=== PATIENT | female | born 1985 | race Asian ===

== ENCOUNTER → 2016-12-21 | Outpatient (CLI) | payer MEDICARE, OTHER ==
--- NOTE | 2016-12-21 07:56 | MR ---
EXAMINATION TYPE: MR lumbar spine wo con DATE OF EXAM: 12/21/2016 7:15 AM COMPARISON: NONE HISTORY: Pain TECHNIQUE: Multiplanar, multisequence images of the lumbar spine were acquired. L1-L2: Normal disc appearance without desiccation. No herniation, protrusion or disc bulging. No ca nal stenosis is present. Foramina are patent bilaterally. L2-L3: Normal disc appearance without desiccation. No herniation, protrusion or disc bulging. No ca nal stenosis is present. Foramina are patent bilaterally. L3-L4: There is evidence of mild disc desiccation. Posterocentral disc protrusion with mild effacemen t of the ventral thecal sac. No evidence for central stenosis. Visualized foramina are patent bilater ally. L4-L5: Mild disc desiccation is present. Posterocentral disc bulge without herniation. Mild effacemen t ventral thecal sac. No evidence for lateral recess stenosis or central stenosis. Foramina are paten t. L5-S1: Moderate disc desiccation is present. Posterior central disc bulge with annular tear. No wendy herniation seen. Mild effacement ventral thecal sac. No evidence for central stenosis or foraminal e ncroachment. Lumbar segments are intact. No paraspinal masses are identified. Conus medullaris has a normal appe arance. IMPRESSION: 1. Degenerative disc disease as discussed. 2. Mild disc protrusion at L3-4. Disc bulging at L4-5 and L5-S1 as noted.
== END | disposition home or self-care (01) ==
LOC: RADMRIMAIN 06:29
PROVIDERS: ATTEND Nurse Practitioner Acute Care
DX: M51.36 Other intervertebral disc degeneration, lumbar region (principal); M51.27 Other intervertebral disc displacement, lumbosacral region; Z88.2 Allergy status to sulfonamides
CPT/HCPCS: 72148

== ENCOUNTER → 2019-10-08 | Outpatient (CLI) | payer OTHER ==
[2019-10-08 18:07] LABS: African American GFR (CKD) 135.9 (60.0-200.0); Albumin 5.2 g/dL (3.80-4.90); Albumin/Globulin Ratio 1.79 (1.60-3.17); Anion Gap 11.9 mmol/L (4.00-12.00); Carbon Dioxide 27.1 mmol/L (21.6-31.8); Globulin 2.9 g/dL (1.6-3.3); Non-African American GFR(CKD) 117.3 (60.0-200.0); Potassium 4.6 mmol/L (3.5-5.5); Total Bilirubin 0.7 mg/dL (0.3-1.2); Total Protein 8.1 g/dL (6.2-8.2)
[2019-10-08 18:52] LABS: Hepatitis A Antibody IgM Non-Reactive (Non-Reactive); Hepatitis B Core IgM Non-Reactive (Non-Reactive); Hepatitis B Surface Antigen Non-Reactive (Non-Reactive); Hepatitis C IgG Antibody Non-Reactive (Non-Reactive)
[2019-10-10 13:04] LABS: HIV 1 AB Non-Reactive (Non-Reactive); HIV 2 AB Non-Reactive (Non-Reactive); HIV AB P24 Non-Reactive (Non-Reactive); HIV P24 AG Non-Reactive (Non-Reactive)
== END | disposition home or self-care (01) ==
LOC: LABWHC1 11:44
PROVIDERS: ATTEND Family Medicine
DX: F19.20 Other psychoactive substance dependence, uncomplicated (principal); Z79.899 Other long term (current) drug therapy
CPT/HCPCS: 36415; 80053; 80074; 87390

== ENCOUNTER 2019-11-14 14:04 | Inpatient (IN) | payer MEDICARE, OTHER ==
[2019-11-14] MEDS ORDERED: SODIUM CHLORIDE 0.9% 2,000 ML IV STA (14:22)
[2019-11-14] MEDS ORDERED: KETOROLAC 30 MG/ML 1 ML VIAL IVP STA (14:22)
[2019-11-14 14:56] LABS: Basophils # (A) 0.2 k/uL (0-0.2); Basophils % (A) 2 %; Eosinophils # (A) 0.3 k/uL (0-0.7); Eosinophils % (A) 2 %; HGB 13.9 gm/dL (11.4-16.0); Lymphocytes # (A) 0.9 k/uL (1.0-4.8); Lymphocytes % (A) 7 %; MCH 33.4 pg (25.0-35.0); MCHC 32.2 g/dL (31.0-37.0); MCV 103.7 fL (80.0-100.0); Macrocytosis Slight; Mean Platelet Volume 6.9; Monocytes # (A) 0.7 k/uL (0-1.0); Monocytes % (A) 5 %; Neutrophils # (A) 10.2 k/uL (1.3-7.7); Neutrophils % (A) 82 %; Platelet Count 245 k/uL (150-450); RBC 4.15 m/uL (3.80-5.40); RDW 12.9 % (11.5-15.5); WBC 12.5 k/uL (3.8-10.6)
[2019-11-14 15:00] LABS: Appearance,Urine Cloudy (Clear); Bacteria,Urine Occasional /hpf; Bilirubin,Urine Negative (Negative); Blood,Urine Trace (Negative); Color,Urine Yellow; Glucose,Urine (UA) Negative (Negative); Ketones,Urine Negative (Negative); Leukocyte Esterase,Urine Trace (Negative); Mucus,Urine Rare /hpf; Nitrite,Urine Negative (Negative); PH, Urine 6.5 (5.0-8.0); Protein,Urine Negative (Negative); RBC,Urine 3 /hpf (0-5); Specific Gravity,Urine 1.012 (1.001-1.035); Squamous Epithelial Cell,Urine 1 /hpf (0-4); Urobilinogen,Urine <2.0 mg/dL (<2.0); WBC,Urine 3 /hpf (0-5)
[2019-11-14 15:06] LABS: ALT 18 U/L (4-34); AST 24 U/L (14-36); African American GFR (CKD) >90 (>60 ml/min/1.73 sqM); Albumin 4.2 g/dL (3.5-5.0); Alkaline Phosphatase 104 U/L (38-126); Amylase 60 U/L (30-110); Anion Gap 9 mmol/L; Blood Urea Nitrogen 8 mg/dL (7-17); Calcium 8.9 mg/dL (8.4-10.2); Carbon Dioxide 23 mmol/L (22-30); Chloride 106 mmol/L (98-107); Glucose 81 mg/dL (74-99); Non-African American GFR(CKD) >90 (>60 ml/min/1.73 sqM); Potassium 3.8 mmol/L (3.5-5.1); Sodium 138 mmol/L (137-145); Total Bilirubin 0.6 mg/dL (0.2-1.3); Total Protein 7.6 g/dL (6.3-8.2)
--- NOTE | 2019-11-14 15:15 | ED ---
Abdominal Pain HPI - General Chief Complaint: Abdominal Pain Stated Complaint: poss kidney infection Time Seen by Provider: 11/14/19 14:19 Source: patient, RN notes reviewed Mode of arrival: ambulatory Limitations: no limitations - History of Present Illness Initial Comments: This a 34-year-old female presents emergency department tingling right flank p ain. Patient states that she was sent from urgent care for probable pyelonephritis. Patient states she does have seen urinary frequency and dysuria. She states she has severe right flank pain. Patient does have a history of kidney stones but states that she's never passed one. She denies any current nausea vomiting she does admit to fevers at home. Patient denies any chance . Patient does have a history of drug abuse is currently taking Suboxone. Patient denies any chest pain, shortness breath. - Related Data Previous Rx's Medication Instructions Recorded Doxepin [SINEquan] 100 mg PO HS #120 cap 07/08/16 LORazepam [Ativan] 0.5 mg PO BID #45 tab 07/08/16 LORazepam [Ativan] 0.5 mg PO TID tab 07/08/16 Sertraline [Zoloft] 100 mg PO DAILY #30 tab 07/08/16 Allergies Allergy/AdvReac Type Severity Reaction Status Date / Time Sulfa (Sulfonamide Allergy Unknown Verified 07/02/16 19:22 Antibiotics) Review of Systems ROS Statement: Those systems with pertinent positive or pertinent negative responses have been documented in the HPI. ROS Other: All systems not noted in ROS Statement are negative. Past Medical History Past Medical History: Hypertension Additional Past Medical History / Comment(s): vascular necrosis-prostetic hips, kidney stones History of Any Multi-Drug Resistant Organisms: None Reported Past Surgical History: Orthopedic Surgery Additional Past Surgical History / Comment(s): valerie HIP REPLACEMENT Past Anesthesia/Blood Transfusion Reactions: No Reported Reaction Past Psychological History: Anxiety, Depression Smoking Status: Current every day smoker Past Alcohol Use History: Occasional Past Drug Use History: Cocaine, Methamphetamine General Exam Limitations: no limitations General appearance: alert, in no apparent distress Head exam: Present: atraumatic, normocephalic, normal inspection Eye exam: Present: normal appearance, PERRL, EOMI. Absent: scleral icterus, conjunctival injection, periorbital swelling ENT exam: Present: normal exam, normal oropharynx, mucous membranes moist Neck exam: Present: normal inspection, full ROM. Absent: tenderness, men ingismus, lymphadenopathy Respiratory exam: Present: normal lung sounds bilaterally. Absent: respiratory distress, wheezes, rales, rhonchi, stridor Cardiovascular Exam: Present: regular rate, normal rhythm, normal heart sounds. Absent: systolic murmur, diastolic murmur, rubs, gallop, clicks GI/Abdominal exam: Present: soft, normal bowel sounds. Absent: distended, tenderness, guarding, rebound, rigid Back exam: Present: CVA tenderness (R) (Moderate). Absent: CVA tenderness (L) Neurological exam: Present: alert, oriented X3, CN II-XII intact Skin exam: Present: warm, dry, intact, normal color. Absent: rash Course Vital Signs 11/14/19 11/14/19 14:16 15:38 Temperature 99.1 F Pulse Rate 103 H 86 Respiratory 20 18 Rate Blood Pressure 108/80 117/76 O2 Sat by Pulse 99 100 Oximetry Medical Decision Making - Medical Decision Making Patient's lab work does reveal mild leukocytosis, mild shift. CT shows multifocal pyelonephritis on the right. Patient will be admitted for IV antibiotics and further evaluation. - Lab Data Result diagrams: 11/14/19 14:35 11/14/19 14:35 Lab Results 11/14/19 11/14/19 11/14/19 Range/Units 14:35 14:35 14:35 WBC 12.5 H (3.8-10.6) k/uL RBC 4.15 (3.80-5.40) m/uL Hgb 13.9 (11.4-16.0) gm/dL Hct 43.0 (34.0-46.0) % MCV 103.7 H (80.0-100.0) fL MCH 33.4 (25.0-35.0) pg MCHC 32.2 (31.0-37.0) g/dL RDW 12.9 (11.5-15.5) % Plt Count 245 (150-450) k/uL Neutrophils % 82 % Lymphocytes % 7 % Monocytes % 5 % Eosinophils % 2 % Basophils % 2 % Neutrophils # 10.2 H (1.3-7.7) k/uL Lymphocytes # 0.9 L (1.0-4.8) k/uL Monocytes # 0.7 (0-1.0) k/uL Eosinophils # 0.3 (0-0.7) k/uL Basophils # 0.2 (0-0.2) k/uL Macrocytosis Slight Sodium 138 (137-145) mmol/L Potassium 3.8 (3.5-5.1) mmol/L Chloride 106 (98-107) mmol/L Carbon Dioxide 23 (22-30) mmol/L Anion Gap 9 mmol/L BUN 8 (7-17) mg/dL Creatinine 0.35 L (0.52-1.04) mg/dL Est GFR (CKD-EPI)AfAm >90 (>60 ml/min/1.73 sqM) Est GFR (CKD-EPI)NonAf >90 (>60 ml/min/1.73 sqM) Glucose 81 (74-99) mg/dL Plasma Lactic Acid Ney (0.7-2.0) mmol/L Calcium 8.9 (8.4-10.2) mg/dL Total Bilirubin 0.6 (0.2-1.3) mg/dL AST 24 (14-36) U/L ALT 18 (4-34) U/L Alkaline Phosphatase 104 (38-126) U/L Total Protein 7.6 (6.3-8.2) g/dL Albumin 4.2 (3.5-5.0) g/dL Amylase 60 (30-110) U/L Lipase 40 (23-300) U/L Urine Color Urine Appearance (Clear) Urine pH (5.0-8.0) Ur Specific [place] (1.001-1.035) Urine Protein (Negative) Urine Glucose (UA) (Negative) Urine Ketones (Negative) Urine Blood (Negative) Urine Nitrite (Negative) Urine Bilirubin (Negative) Urine Urobilinogen (<2.0) mg/dL Ur Leukocyte Esterase (Negative) Urine RBC (0-5) /hpf Urine WBC (0-5) /hpf Ur Squamous Epith Cells (0-4) /hpf Urine Bacteria (None) /hpf Urine Mucus (None) /hpf Urine HCG, Qual Not Detected (Not Detectd) 11/14/19 11/14/19 Range/Units 14:35 14:35 WBC (3.8-10.6) k/uL RBC (3.80-5.40) m/uL Hgb (11.4-16.0) gm/dL Hct (34.0-46.0) % MCV (80.0-100.0) fL MCH (25.0-35.0) pg MCHC (31.0-37.0) g/dL RDW (11.5-15.5) % Plt Count (150-450) k/uL Neutrophils % % Lymphocytes % % Monocytes % % Eosinophils % % Basophils % % Neutrophils # (1.3-7.7) k/uL Lymphocytes # (1.0-4.8) k/uL Monocytes # (0-1.0) k/uL Eosinophils # (0-0.7) k/uL Basophils # (0-0.2) k/uL Macrocytosis Sodium (137-145) mmol/L Potassium (3.5-5.1) mmol/L Chloride (98-107) mmol/L Carbon Dioxide (22-30) mmol/L Anion Gap mmol/L BUN (7-17) mg/dL Creatinine (0.52-1.04) mg/dL Est GFR (CKD-EPI)AfAm (>60 ml/min/1.73 sqM) Est GFR (CKD-EPI)NonAf (>60 ml/min/1.73 sqM) Glucose (74-99) mg/dL Plasma Lactic Acid Ney 1.9 (0.7-2.0) mmol/L Calcium (8.4-10.2) mg/dL Total Bilirubin (0.2-1.3) mg/dL AST (14-36) U/L ALT (4-34) U/L Alkaline Phosphatase (38-126) U/L Total Protein (6.3-8.2) g/dL Albumin (3.5-5.0) g/dL Amylase (30-110) U/L Lipase (23-300) U/L Urine Color Yellow Urine Appearance Cloudy H (Clear) Urine pH 6.5 (5.0-8.0) Ur Specific [place] 1.012 (1.001-1.035) Urine Protein Negative (Negative) Urine Glucose (UA) Negative (Negative) Urine Ketones Negative (Negative) Urine Blood Trace H (Negative) Urine Nitrite Negative (Negative) Urine Bilirubin Negative (Negative) Urine Urobilinogen <2.0 (<2.0) mg/dL Ur Leukocyte Esterase Trace H (Negative) Urine RBC 3 (0-5) /hpf Urine WBC 3 (0-5) /hpf Ur Squamous Epith Cells 1 (0-4) /hpf Urine Bacteria Occasional H (None) /hpf Urine Mucus Rare H (None) /hpf Urine HCG, Qual (Not Detectd) Disposition Clinical Impression: Pyelonephritis Narrative: Multifocal pyelonephritis Disposition: ADMITTED IP TO THIS HOSP Condition: Fair Referrals: Buck Aj MD [Primary Care Provider] - 1-2 days
--- NOTE | 2019-11-14 15:53 | CT ---
EXAMINATION TYPE: CT abdomen pelvis w con DATE OF EXAM: 11/14/2019 HISTORY: Abdominal pain with fever CT DLP: 674.2mGycm Automated Exposure Control for Dose Reduction was Utilized. CONTRAST: CT scan of the abdomen and pelvis is performed without oral but with IV Contrast, patient injected wi th 100 mL of Isovue 300. COMPARISON: None. FINDINGS: LUNG BASES: Respiratory motion artifact. Patchy dependent atelectasis left lung base LIVER/GB: Stone filled contracted gallbladder. No surrounding fat stranding clearly seen. PANCREAS: No significant abnormality is seen. SPLEEN: No significant abnormality is seen. ADRENALS: No significant abnormality is seen. KIDNEYS: Kidneys show cortical medullary uptake and excretion bilaterally without hydronephrosis. Sub centimeter low dense lesion posteriorly upper to midpole left kidney image 31 series 301 is too small to further characterize presumed benign. There is a heterogeneous area of nonenhancement anteriorly upper to mid pole of the right kidney with additional smaller area of striation and posteriorly midpo le level image 40. Asymmetric mild right-sided perinephric fluid. Asymmetric slight enlargement right kidney versus left kidney BOWEL: Evaluation bowel suboptimal secondary to lack of enteric contrast. No suspicious small large b owel dilatation. Patient has little intra-abdominal fat making evaluation suboptimal. UTERUS/ADNEXA: Slightly anteverted uterus. Both ovaries seen axial image 76 within normal limits in s ize for patient's age LYMPH NODES: No greater than 1cm abdominal or pelvic lymph nodes are appreciated. OSSEOUS STRUCTURES: Metallic artifact from bilateral hip arthroplasty causes streak artifact limiting evaluation of pelvic structures. Scattered pelvic phleboliths are partially imaged. Mild to moderate disc space narrowing L5-S1 level. OTHER: No significant additional abnormality is seen. IMPRESSION: CT findings suggest diagnosis of multifocal right-sided pyelonephritis correlate clinical ly and with urine lab values.
[2019-11-14] MEDS ORDERED: VANCOMYCIN IV PER PHARMACY 1 EACH MISC MISCELLANE PRN ×2 (16:04→17:15)
[2019-11-14] MEDS ORDERED: NALOXONE 0.4 MG/ML 1 ML VIAL IV PRN (16:05)
[2019-11-14] MEDS ORDERED: ACETAMINOPHEN TAB 325 MG TAB PO PRN (16:05)
[2019-11-14] MEDS ORDERED: VANCOMYCIN 1,000 MG in SODIUM CHLORIDE 0.9% 250 ML IVPB STA (16:10)
[2019-11-14] MEDS ORDERED: IBUPROFEN 800 MG TAB PO PRN (17:08)
[2019-11-14] MEDS ORDERED: ALBUTEROL NEBULIZED 2.5 MG/3 ML INHALATION PRN (17:08)
[2019-11-14] MEDS: SODIUM CHLORIDE 0.9% 1,000 ML IV SCH ×2 (18:58→23:38)
--- NOTE | 2019-11-14 19:41 | HP ---
HISTORY AND PHYSICAL CHIEF COMPLAINTS: Abdominal pain and right flank pain. 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 Renteria as well as Dr. Aj in the outpatient setting, is on Suboxone currently. The patient is complaining of abdominal pain which is felt in the right loin area, and the patient also is complaining of urinary frequency and dysuria. The patient came to [facility] and was admitted for evaluation and treatment. CT scan of the abdomen showed possible multifocal pyelonephritis on the right side. There is no history of any fever, rigor or chills. No history of headache, loss of consciousness, seizures. Per chart, there is history of some substance abuse. PAST MEDICAL HISTORY: 1. History of hypertension. 2. History of avascular necrosis of both hips. 3. Kidney stones. 4. History of DJD. 5. History of anxiety, depression. HOME MEDICATIONS: 1. Zanaflex 4 mg p.o. b.i.d. 2. Ibuprofen 800 mg q.6 p.r.n. 3. Suboxone 1 film b.i.d. 4. Ventolin 1-2 puffs q.6 p.r.n. ALLERGIES: SULFA. FAMILY HISTORY: No history of heart disease or strokes in the family. SOCIAL HISTORY: Possible polysubstance abuse and smoking. Alcohol as well as cocaine, methamphetamine. REVIEW OF SYSTEMS: ENT: No diminished hearing. No diminished vision. CARDIOVASCULAR SYSTEM: No angina, palpitations. RESPIRATORY SYSTEM: No cough, hemoptysis. GI: As mentioned earlier. : As mentioned earlier. NERVOUS SYSTEM: No numbness, weakness. ALLERGY/IMMUNOLOGY: No asthma, hayfever. MUSCULOSKELETAL: As mentioned earlier. HEMATOLOGY/ONCOLOGY: No history of anemia. ENDOCRINE: No history of diabetes, hypothyroidism. CONSTITUTIONAL: As mentioned earlier. DERMATOLOGY: Negative. RHEUMATOLOGY: Negative. PSYCHIATRY: As mentioned earlier. PHYSICAL EXAMINATION: Patient is alert and oriented x3. Pulse is 83. Blood pressure 112/75, respiration 18, temperature 98.6, pulse ox 100% on room air. HEENT: Conjunctivae normal. Oral mucosa moist. NECK: No jugular venous distention. No carotid bruit. No lymph node enlargement. CARDIOVASCULAR SYSTEM: S1, S2 muffled. No S3. No S4. RESPIRATORY SYSTEM: Breath sounds diminished at the bases. No rhonchi. No crackles. ABDOMEN: Soft. Mild diffuse tenderness in the right loin area and right mid part of the abdomen also present. No mass palpable. LEGS: No edema. No swelling. NERVOUS SYSTEM: Higher functions as mentioned earlier. Moves all 4 limbs. No focal motor or sensory deficit. LYMPHATICS: No lymph node palpable in neck, axillae or groin. SKIN: No ulcer, rash, bleeding. JOINTS: No active deforming arthropathy. LABS: WBC 12.5, hemoglobin 13.9. Sodium 138, potassium 3.9, creatinine 0.35. UA noted. ASSESSMENT: 1. Acute right multifocal pyelonephritis with possible sepsis, present on admission. 2. Increased white count. 3. Increased mean corpuscular volume. 4. History of hypertension. 5. History of avascular necrosis of both hips, status post prostheses. 6. History of nephrolithiasis. 7. History of degenerative joint disease. 8. History of anxiety, depression. 9. History of polysubstance abuse, possibly including cocaine, methamphetamine, nicotine dependence, ethanol, per chart. 10.FULL CODE. RECOMMENDATIONS AND DISCUSSION: In this 34-year-old woman who presented with multiple complex medical issues, we will monitor the patient closely, continue the current medications, continue symptomatic treatment. Will initiate Rocephin and vancomycin. Infectious disease evaluation. CT scan noted. Also recommend a workup for infective endocarditis such as blood cultures and 2D echo with Doppler. Prognosis is guarded because of multiple complex medical issues. Further recommendations to follow. A copy of this dictation is being forwarded to Dr. Renteria and Dr. Aj. MMJUAN ML / JOCELINEN: [id number] / MTDMarquise
[2019-11-14] MEDS: KETOROLAC 30 MG/ML 1 ML VIAL IVP PRN (21:43)
[2019-11-14] MEDS: HEPARIN SODIUM,PORCINE 5,000 UNIT/ML 1 ML VIAL SQ SCH (21:43)
[2019-11-14] MEDS: TEMAZEPAM 15 MG CAP PO PRN (23:12)
[2019-11-14] MEDS: NON FORMULARY DRUG (Buprenorphine Hcl/Naloxone Hcl [Suboxone 8 Mg-2 Mg Sl Film] 1 FILM) SUBLINGUAL SCH (23:13)
[2019-11-14] MEDS: VANCOMYCIN 1,000 MG in SODIUM CHLORIDE 0.9% 250 ML IVPB SCH (23:36)
[2019-11-14] MEDS: tiZANidine 4 MG TAB PO SCH (23:36)
[2019-11-15 03:37] LABS: Amphetamine Screen,Urine Detected (NotDetected); Barbiturate Screen,Urine Not Detected (NotDetected); Benzodiazepines Screen,Urine Detected (NotDetected); Cocaine Screen,Urine Not Detected (NotDetected); Methadone Screen, Urine Not Detected (NotDetected); Opiate Screen,Urine Not Detected (NotDetected); Oxycodone Screen, Urine Not Detected (NotDetected); Phencyclidine Screen,Urine Not Detected (NotDetected); Tricyclic Antidepressant,Urine Not Detected (NotDetected); Urn Cannabinoid Scrn Detected (NotDetected)
[2019-11-15] MEDS: KETOROLAC 30 MG/ML 1 ML VIAL IVP PRN ×2 (07:32→19:14)
[2019-11-15] MEDS: tiZANidine 4 MG TAB PO SCH ×2 (07:33→20:36)
[2019-11-15] MEDS: HEPARIN SODIUM,PORCINE 5,000 UNIT/ML 1 ML VIAL SQ SCH ×2 (07:33→20:36)
[2019-11-15] MEDS: PANTOPRAZOLE 40 MG TABLET PO SCH (07:33)
[2019-11-15 08:33] LABS: Basophils % (A) 0 %; Eosinophils # (A) 0.2 k/uL (0-0.7); Eosinophils % (A) 3 %; HCT 37.6 % (34.0-46.0); HGB 12.2 gm/dL (11.4-16.0); Lymphocytes # (A) 0.8 k/uL (1.0-4.8); Lymphocytes % (A) 10 %; MCH 33.8 pg (25.0-35.0); MCHC 32.5 g/dL (31.0-37.0); MCV 104.2 fL (80.0-100.0); Macrocytosis Slight; Mean Platelet Volume 7.5; Monocytes # (A) 0.5 k/uL (0-1.0); Monocytes % (A) 6 %; Neutrophils # (A) 6.5 k/uL (1.3-7.7); Neutrophils % (A) 80 %; Platelet Count 231 k/uL (150-450); RBC 3.61 m/uL (3.80-5.40); RDW 12.9 % (11.5-15.5); WBC 8.2 k/uL (3.8-10.6)
[2019-11-15 08:42] LABS: African American GFR (CKD) >90 (>60 ml/min/1.73 sqM); Anion Gap 5 mmol/L; Blood Urea Nitrogen 9 mg/dL (7-17); Calcium 8.4 mg/dL (8.4-10.2); Carbon Dioxide 23 mmol/L (22-30); Chloride 109 mmol/L (98-107); Glucose 95 mg/dL (74-99); Non-African American GFR(CKD) >90 (>60 ml/min/1.73 sqM); Potassium 4.2 mmol/L (3.5-5.1); Sodium 137 mmol/L (137-145)
[2019-11-15] MEDS: NON FORMULARY DRUG (Buprenorphine Hcl/Naloxone Hcl [Suboxone 8 Mg-2 Mg Sl Film] 1 FILM) SUBLINGUAL SCH ×2 (09:07→21:54)
[2019-11-15] MEDS: VANCOMYCIN 1,000 MG in SODIUM CHLORIDE 0.9% 250 ML IVPB SCH ×3 (09:08→23:51)
[2019-11-15 12:09] LABS: Erythrocyte Sedimentation Rate 58 mm/hr (0-20)
--- NOTE | 2019-11-15 13:00 | ECHOF ---
Referral Reason:infective endocarditis?? MEASUREMENTS -------- HEIGHT: 162.6 cm WEIGHT: 59.4 kg BP: 118/70 RVIDd: 2.3 cm (< 3.3) IVSd: 1.1 cm (0.6 - 1.1) LVIDd: 4.6 cm (3.9 - 5.3) LVPWd: 0.9 cm (0.6 - 1.1) IVSs: 1.6 cm LVIDs: 2.5 cm LVPWs: 1.6 cm LAESV Index (A-L): 25.74 ml/m Ao Diam: 2.6 cm (2.0 - 3.7) AV Cusp: 1.8 cm (1.5 - 2.6) MV EXCURSION: 12.541 mm (> 18.000) MV EF SLOPE: 94 mm/s (70 - 150) EPSS: 0.8 cm MV E Jae: 0.79 m/s MV DecT: 210 ms MV A Jae: 0.66 m/s MV E/A Ratio: 1.19 RAP: 5.00 mmHg RVSP: 20.75 mmHg FINDINGS -------- Sinus rhythm. This was a technically good study. The left ventricular size is normal. There is borderline concentric left ventricular hypertrophy. Overall left ventricular systolic function is normal with, an EF between 60 - 65 %. The right ventricle is normal in size. Normal LA size by volume 22+/-6 ml/m2. The right atrium is normal in size. Interatrial and interventricular septum intact. The aortic valve is trileaflet and appears structurally normal. There is trace mitral regurgitation. Mild tricuspid regurgitation present. Right ventricular systolic pressure is normal at < 35 mmHg. Trace/mild (physiologic) pulmonic regurgitation. The aortic root size is normal. Normal inferior vena cava with normal inspiratory collapse consistent with estimated right atrial pre ssure of 5 mmHg. The inferior vena cava is mildly dilated. There is no pericardial effusion. CONCLUSIONS -------- 1. Sinus rhythm. 2. This was a technically good study. 3. The left ventricular size is normal. 4. There is borderline concentric left ventricular hypertrophy. 5. Overall left ventricular systolic function is normal with, an EF between 60 - 65 %. 6. The right ventricle is normal in size. 7. Normal LA size by volume 22+/-6 ml/m2. 8. The right atrium is normal in size. 9. Interatrial and interventricular septum intact. 10. The aortic valve is trileaflet and appears structurally normal. 11. There is trace mitral regurgitation. 12. Mild tricuspid regurgitation present. 13. Right ventricular systolic pressure is normal at < 35 mmHg. 14. Trace/mild (physiologic) pulmonic regurgitation. 15. The aortic root size is normal. 16. Normal inferior vena cava with normal inspiratory collapse consistent with estimated right atrial pressure of 5 mmHg. 17. The inferior vena cava is mildly dilated. 18. There is no pericardial effusion. HOSPICE CONSULTANT: VANI Maria
--- NOTE | 2019-11-15 14:01 | P.PN ---
Subjective Progress Note Date: 11/15/19 Principal diagnosis: This is a 34-year-old female who was recently admitted for possible multifocal pyelonephritis of the right side and is being closely monitored. Patient underwent echo today showing overall left ventricular systolic function is normal with an EF between 60 and 65% with some mild tricuspid regurgitation and trace of mitral regurgitation present with no pericardial effusion noted. Patient states that she is urinating and continues to have some frequency with urination. Patient is maintained on IV vancomycin and will continue at this time. Patient states that she continues to have generalized pain and right- sided pain is well but is not being managed. Patient is requesting something stronger than toradol. Patient is currently on Suboxone and is being followed by Dr. Renteria and Dr. Aj in the outpatient setting. Review of Systems: Cardiovascular: No reports of chest pain or palpitations Respiratory: Reports some shortness of breath at times, reports cough GI: No reports of nausea, vomiting, or diarrhea : Reports mild dysuria, no reports of retention Musculoskeletal: Reports generalized pain of the hips bilaterally and reports mild right abdominal pain Active Medications Acetaminophen (Tylenol Tab) 650 mg PO Q6HR PRN PRN Reason: Mild Pain or Fever > 100.5 Albuterol Sulfate (Ventolin Nebulized) 2.5 mg INHALATION RT-Q6H PRN PRN Reason: Shortness Of Breath Heparin Sodium (Porcine) (Heparin) 5,000 unit SQ Q12HR [facility] Last Admin: 11/15/19 07:33 Dose: 5,000 unit Documented by: Hydromorphone HCl (Dilaudid) 0.5 mg IVP Q6HR PRN PRN Reason: Severe Pain Sodium Chloride (Saline 0.9%) 1,000 mls @ 100 mls/hr IV .Q10H [facility] Last Admin: 11/14/19 23:38 Dose: 100 mls/hr Documented by: Vancomycin HCl 1,000 mg/ (Sodium Chloride) 250 mls @ 125 mls/hr IVPB Q8H [facility] Last Admin: 11/15/19 09:08 Dose: 125 mls/hr Documented by: Ceftriaxone Sodium 1 gm/ (Sodium Chloride) 50 mls @ 100 mls/hr IVPB Q24HR [facility] Last Admin: 11/15/19 07:33 Dose: 100 mls/hr Documented by: Ibuprofen (Motrin) 800 mg PO Q6H PRN PRN Reason: Pain Last Admin: 11/14/19 19:54 Dose: 800 mg Documented by: Ketorolac Tromethamine (Toradol) 30 mg IVP Q6HR PRN PRN Reason: Moderate Pain Stop: 11/19/19 16:06 Last Admin: 11/15/19 07:32 Dose: 30 mg Documented by: Miscellaneous Information (Vancomycin Trough Due) 0 each MISCELLANE DIRECTED ONE Stop: 11/15/19 23:01 Naloxone HCl (Narcan) 0.2 mg IV Q2M PRN PRN Reason: Opioid Reversal Non-Formulary Medication (Buprenorphine Hcl/Naloxone Hcl [Suboxone 8 Mg-2 Mg Sl Film]) 1 film SUBLINGUAL BID [facility] Last Admin: 11/15/19 09:07 Dose: Not Given Documented by: Pantoprazole Sodium (Protonix) 40 mg PO AC-BRKFST [facility] Last Admin: 11/15/19 07:33 Dose: 40 mg Documented by: Temazepam (Restoril) 15 mg PO HS PRN PRN Reason: Insomnia Last Admin: 11/14/19 23:12 Dose: 15 mg Documented by: Tizanidine HCl (Zanaflex) 4 mg PO BID [facility] Last Admin: 11/15/19 07:33 Dose: 4 mg Documented by: Objective - Vital Signs Vital signs: Vital Signs Temp 98.7 F 11/15/19 05:13 Pulse 69 11/15/19 05:13 Resp 16 11/15/19 05:13 BP 118/79 11/15/19 05:13 Pulse Ox 99 11/15/19 05:13 Intake & Output 11/14/19 11/15/19 11/15/19 18:59 06:59 18:59 Weight 59.647 kg Other: # Voids 1 # Bowel Movements 0 - Exam Gen: This is a 34-year-old female lying in bed alert and oriented 3, well- nourished. Temp is 98.7F, pulse is 69, respirations are 16, blood pressure is 118/79, oxygen saturation is 99% on room air. HEENT: Head is atraumatic, normocephalic. Pupils equal, round. Sclerae is anicteric. NECK: Supple. No JVD. No lymphadenopathy. No thyromegaly. LUNGS: Diminished breath sounds at the bases with no wheezing or rhonchi noted. No intercostal retractions. HEART: S1, S2 are muffled with no murmur noted. ABDOMEN: Soft. Bowel sounds are present. No masses. Mild right-sided mid abdominal tenderness noted on palpation EXTREMITIES: No pedal edema. No calf tenderness. NEUROLOGICAL: Patient is awake, alert and oriented x3. Cranial nerves 2 through 12 are grossly intact. - Labs CBC & Chem 7: 11/15/19 07:32 11/15/19 07:32 Labs: Abnormal Lab Results - Last 24 Hours (Table) 11/14/19 11/14/19 11/14/19 Range/Units 14:35 14:35 14:35 WBC 12.5 H (3.8-10.6) k/uL RBC (3.80-5.40) m/uL MCV 103.7 H (80.0-100.0) fL Neutrophils # 10.2 H (1.3-7.7) k/uL Lymphocytes # 0.9 L (1.0-4.8) k/uL ESR (0-20) mm/hr Chloride (98-107) mmol/L Creatinine 0.35 L (0.52-1.04) mg/dL C-Reactive Protein (<10.0) mg/L Urine Appearance Cloudy H (Clear) Urine Blood Trace H (Negative) Ur Leukocyte Esterase Trace H (Negative) Urine Bacteria Occasional H (None) /hpf Urine Mucus Rare H (None) /hpf Ur Amphetamines Screen (NotDetected) U Benzodiazepines Scrn (NotDetected) U Marijuana (THC) Screen (NotDetected) 11/14/19 11/15/19 11/15/19 Range/Units 14:45 03:00 07:32 WBC (3.8-10.6) k/uL RBC 3.61 L (3.80-5.40) m/uL MCV 104.2 H (80.0-100.0) fL Neutrophils # (1.3-7.7) k/uL Lymphocytes # 0.8 L (1.0-4.8) k/uL ESR 58 H (0-20) mm/hr Chloride (98-107) mmol/L Creatinine (0.52-1.04) mg/dL C-Reactive Protein 198.8 H (<10.0) mg/L Urine Appearance (Clear) Urine Blood (Negative) Ur Leukocyte Esterase (Negative) Urine Bacteria (None) /hpf Urine Mucus (None) /hpf Ur Amphetamines Screen Detected H (NotDetected) U Benzodiazepines Scrn Detected H (NotDetected) U Marijuana (THC) Screen Detected H (NotDetected) 11/15/19 Range/Units 07:32 WBC (3.8-10.6) k/uL RBC (3.80-5.40) m/uL MCV (80.0-100.0) fL Neutrophils # (1.3-7.7) k/uL Lymphocytes # (1.0-4.8) k/uL ESR (0-20) mm/hr Chloride 109 H (98-107) mmol/L Creatinine 0.36 L (0.52-1.04) mg/dL C-Reactive Protein (<10.0) mg/L Urine Appearance (Clear) Urine Blood (Negative) Ur Leukocyte Esterase (Negative) Urine Bacteria (None) /hpf Urine Mucus (None) /hpf Ur Amphetamines Screen (NotDetected) U Benzodiazepines Scrn (NotDetected) U Marijuana (THC) Screen (NotDetected) Assessment and Plan Assessment: Acute right multifocal pyelonephritis with possible sepsis, present on admission Increased white blood count Increased mean corpuscle volume History of hypertension History of avascular necrosis of both hips, status post prosthesis History of nephrolithiasis history of degenerative joint disease history of anxiety, depression History of polysubstance abuse, possibly including cocaine, methamphetamine, nicotine dependence, ethanol, per chart Full code Recommendations and discussion: Recommend to continue current medications, management, and symptomatic treatment. Pain medications have been adjusted and will continue to monitor closely. IV antibiotics in the form of ceftriaxone and Vanco will continue at this time. Infectious disease is following. Echo was done as mentioned previously. Due to multiple complex medical issues prognosis is guarded. Further recommendations to follow.
[2019-11-15] MEDS: SODIUM CHLORIDE 0.9% 1,000 ML IV SCH ×2 (14:25→22:30)
[2019-11-15] MEDS: HYDROmorphone 0.5 MG/0.5 ML SYRINGE IVP PRN ×2 (14:26→20:47)
[2019-11-15] MEDS ORDERED: VANCOMYCIN TROUGH DUE 1 EACH MISC MISCELLANE ONE (23:00)
[2019-11-15] MEDS: TEMAZEPAM 15 MG CAP PO PRN (23:51)
--- NOTE | 2019-11-16 00:11 | P.CONS ---
History of Present Illness - Reason for Consult Consult date: 11/15/19 pyelonephritis Requesting physician: Jennie Carnes - Chief Complaint right flank pain x days - History of Present Illness Patient is a 34-year-old female presenting to the ER at [facility] yesterday with chief complaints of pain to the right flank area patient pain has been going on for few days before presented to the hospital patient describes the pain to the right flank area more of a sharp nature intensity about 6-7 out of 10 and no radiation patient has been complaining of some urinary frequency and dysuria before her flank pain started also have some fever with chills with the symptom the patient was evaluated by the ER physician on arrival to the ER patient did have a CT of abdominal pelvis completed which did show some multifocal right-sided pyelonephritis correlate clinically patient did have a mildly positive UA white count was 12.5 urine drug screen was positive for benzos and marijuana and amphetamines patient did have blood cultures drawn which are currently pending she was started on Rocephin 1 g daily in addition to vancomycin infectious disease was consulted for further recommendation regarding antibiotic therapy. Review of Systems Positive point has been mentioned in HPI rest of the systems are negative Past Medical History Past Medical History: Hypertension Additional Past Medical History / Comment(s): vascular necrosis-prosthetic hips, kidney stones History of Any Multi-Drug Resistant Organisms: None Reported Past Surgical History: Orthopedic Surgery Additional Past Surgical History / Comment(s): valerie HIP REPLACEMENT Past Anesthesia/Blood Transfusion Reactions: No Reported Reaction Past Psychological History: Anxiety, Depression Smoking Status: Current every day smoker Past Alcohol Use History: Occasional Past Drug Use History: Cocaine, Methamphetamine - Past Family History Father History Unknown: Yes Additional Family Medical History / Comment(s): Pt is adopted Medications and Allergies Home Medications Medication Instructions Recorded Confirmed Type Albuterol Inhaler [Ventolin Hfa 2 puff INHALATION RT-Q4H PRN 11/14/19 11/14/19 History Inhaler] Buprenorphine HCl/Naloxone HCl 1 film SL BID 11/14/19 11/14/19 History [Suboxone 8 mg-2 mg Sl Film] Ibuprofen [Motrin Ib] 800 mg PO Q6H PRN 11/14/19 11/14/19 History tiZANidine [Zanaflex] 4 mg PO BID 11/14/19 11/14/19 History Allergies Allergy/AdvReac Type Severity Reaction Status Date / Time Sulfa (Sulfonamide Allergy Rash/Hives/ Verified 11/14/19 17:05 Antibiotics) Swelling Physical Exam Vitals: Vital Signs Temp Pulse Resp BP Pulse Ox 11/15/19 20:19 82 16 11/15/19 14:17 98.6 F 82 16 128/87 100 11/15/19 05:13 98.7 F 69 16 118/79 99 11/15/19 00:00 83 16 Intake and Output 11/15/19 11/15/19 11/15/19 06:59 14:59 22:59 Intake Total 900 Balance 900 Intake: Oral 900 Other: # Voids 1 2 2 # Bowel Movements 0 0 GENERAL DESCRIPTION: Middle-aged female lying in bed, no distress. No tachypnea or accessory muscle of respiration use. HEENT: Shows Pallor , no scleral icterus. Oral mucous membrane is dry. NECK: Trachea central, no thyromegaly. LUNGS: Unlabored breathing. Clear to auscultation anteriorly. No wheeze or crackle. HEART: S1, S2, regular rate and rhythm. ABDOMEN: Soft, right flank tenderness tenderness , guarding or rigidity EXTREMITIES: No edema of feet. SKIN: No rash, no masses palpable. NEUROLOGICAL: The patient is awake, alert, oriented x3, mood and affect normal. Results CBC & Chem 7: 11/15/19 07:32 11/15/19 07:32 Labs: Abnormal Lab Results - Last 24 Hours (Table) 11/15/19 11/15/19 11/15/19 Range/Units 03:00 07:32 07:32 RBC 3.61 L (3.80-5.40) m/uL MCV 104.2 H (80.0-100.0) fL Lymphocytes # 0.8 L (1.0-4.8) k/uL ESR 58 H (0-20) mm/hr Chloride 109 H (98-107) mmol/L Creatinine 0.36 L (0.52-1.04) mg/dL Ur Amphetamines Screen Detected H (NotDetected) U Benzodiazepines Scrn Detected H (NotDetected) U Marijuana (THC) Screen Detected H (NotDetected) Microbiology - Last 24 Hours (Table) 11/14/19 14:35 Blood Culture - Preliminary Blood No Growth after 24 hours Assessment and Plan Assessment: -patient with right-sided pyelonephritis in this patient presented hospital with right flank pain and also some dysuria and frequency likely from enteric gram- negative pathogen likely exacerbation of her gram-positive pathogen responsible for this UTI (1) Pyelonephritis Current Visit: Yes Status: Acute Code(s): N12 - TUBULO-INTERSTITIAL NEPHRITIS, NOT SPCF ACUTE OR CHRONIC SNOMED Code(s): 37673045 Plan: 1-repeat a UA and a culture 2-we will increase Rocephin to 2 g daily and discontinue the vancomycin 3-IV fluid We will follow on clinical condition and cultures to further adjust medication if needed Thank you for this consultation we will follow the patient along with you Time with Patient: Greater than 30
[2019-11-16] MEDS: HYDROmorphone 0.5 MG/0.5 ML SYRINGE IVP PRN ×2 (03:31→09:16)
[2019-11-16 06:58] LABS: Basophils # (A) 0.2 k/uL (0-0.2); Basophils % (A) 3 %; Eosinophils # (A) 0.2 k/uL (0-0.7); Eosinophils % (A) 2 %; HCT 37.1 % (34.0-46.0); HGB 11.6 gm/dL (11.4-16.0); Lymphocytes # (A) 1.2 k/uL (1.0-4.8); Lymphocytes % (A) 20 %; MCH 32.6 pg (25.0-35.0); MCHC 31.3 g/dL (31.0-37.0); MCV 104.1 fL (80.0-100.0); Macrocytosis Slight; Mean Platelet Volume 7.8; Monocytes # (A) 0.6 k/uL (0-1.0); Monocytes % (A) 10 %; Neutrophils # (A) 3.9 k/uL (1.3-7.7); Neutrophils % (A) 63 %; Platelet Count 278 k/uL (150-450); RBC 3.56 m/uL (3.80-5.40); RDW 12.8 % (11.5-15.5); WBC 6.2 k/uL (3.8-10.6)
[2019-11-16 07:09] LABS: African American GFR (CKD) >90 (>60 ml/min/1.73 sqM); Anion Gap 6 mmol/L; Blood Urea Nitrogen 15 mg/dL (7-17); Calcium 7.9 mg/dL (8.4-10.2); Carbon Dioxide 22 mmol/L (22-30); Chloride 110 mmol/L (98-107); Glucose 132 mg/dL (74-99); Non-African American GFR(CKD) >90 (>60 ml/min/1.73 sqM); Potassium 3.6 mmol/L (3.5-5.1); Sodium 138 mmol/L (137-145)
[2019-11-16] MEDS: PANTOPRAZOLE 40 MG TABLET PO SCH (07:17)
[2019-11-16] MEDS: VANCOMYCIN 1,000 MG in SODIUM CHLORIDE 0.9% 250 ML IVPB SCH ×3 (07:18→19:53)
[2019-11-16] MEDS: NON FORMULARY DRUG (Buprenorphine Hcl/Naloxone Hcl [Suboxone 8 Mg-2 Mg Sl Film] 1 FILM) SUBLINGUAL SCH ×2 (09:15→19:56)
[2019-11-16] MEDS: HEPARIN SODIUM,PORCINE 5,000 UNIT/ML 1 ML VIAL SQ SCH ×2 (09:16→21:00)
[2019-11-16] MEDS: tiZANidine 4 MG TAB PO SCH ×2 (09:16→21:00)
[2019-11-16] MEDS: SODIUM CHLORIDE 0.9% 1,000 ML IV SCH ×2 (09:22→18:30)
[2019-11-16] MEDS: KETOROLAC 30 MG/ML 1 ML VIAL IVP PRN ×2 (12:12→20:55)
[2019-11-16 13:39] LABS: Appearance,Urine Clear (Clear); Bilirubin,Urine Negative (Negative); Blood,Urine Negative (Negative); Color,Urine Light Yellow; Glucose,Urine (UA) Negative (Negative); Ketones,Urine Negative (Negative); Leukocyte Esterase,Urine Negative (Negative); Nitrite,Urine Negative (Negative); Protein,Urine Negative (Negative); Urobilinogen,Urine <2.0 mg/dL (<2.0)
--- NOTE | 2019-11-16 17:54 | PN ---
PROGRESS NOTE DATE OF SERVICE: 11/16/2019 REASON FOR FOLLOWUP: Right-sided pyelonephritis. INTERVAL HISTORY: The patient is currently afebrile. The patient is breathing comfortably. The patient's pain to the right flank area has improved. Denies having any chest pain, shortness of breath or cough. No nausea, no vomiting, no abdominal pain, no diarrhea. PHYSICAL EXAMINATION: Blood pressure is 132/91 with a pulse of 68, temperature 98.6. She is 100% on room air. General description is a middle-aged female up in the chair in no distress. RESPIRATORY SYSTEM: Unlabored breathing. Clear to auscultation anteriorly. HEART: S1, S2. Regular rate and rhythm. ABDOMEN: Soft. No tenderness. LABS: Hemoglobin 11.3, white count 6.2, BUN of 15, creatinine 0.49. Blood culture has been negative. DIAGNOSTIC IMPRESSION AND PLAN: Patient with right-sided pyelonephritis. Patient's white count has normalized. Blood culture has been negative so far. Repeat UA has been ordered. Rocephin 2 grams daily while waiting for the repeat culture to finalize. Continue with supportive care. MMODL / IJN: [id number] /
--- NOTE | 2019-11-16 18:15 | PN ---
PROGRESS NOTE DATE OF SERVICE: 11/16/2019 This 34-year-old woman who was admitted with multifocal pyelonephritis and significant right renal angle pain is being closely monitored. Cultures are negative. Patient is on broad-spectrum IV antibiotics. Infectious Disease is following the patient. No chest pain. No palpitations. No fever. PHYSICAL EXAMINATION: Alert and oriented x3. Pulse 68, blood pressure 138/91, respirations 16, temperature 98.6, pulse ox 100% on room air. HEENT: Conjunctivae normal. NECK: No jugular venous distention. CARDIOVASCULAR SYSTEM: S1, S2 muffled. RESPIRATORY SYSTEM: Breath sounds diminished at the bases. No rhonchi. No crackles. ABDOMEN: Soft. Minimal diffuse tenderness in the right renal angle present. No guarding. No rigidity. NERVOUS SYSTEM: No focal deficits. LABS: WBC 6.2, hemoglobin 11.6. ASSESSMENT: 1. Acute multifocal right pyelonephritis with possible sepsis, present on admission. 2. Increased white count. 3. Increased mean corpuscular volume. 4. Hypertension. 5. History of vascular necrosis of both hips, status post prostheses. 6. History of nephrolithiasis. 7. History of degenerative joint disease. 8. History of anxiety, depression. 9. History of polysubstance abuse, including cocaine, methamphetamine, nicotine dependence, ethanol per chart. 10.FULL CODE. RECOMMENDATIONS AND DISCUSSION: I recommend to continue current medications, continue with the monitoring, symptomatic treatment. Continue with the broad-spectrum IV antibiotics. Prognosis guarded because of multiple complex medical issues. Further recommendations to follow. MMODL / IJN: [id number] /
[2019-11-16] MEDS: TEMAZEPAM 15 MG CAP PO PRN (21:05)
[2019-11-17] MEDS: VANCOMYCIN 1,000 MG in SODIUM CHLORIDE 0.9% 250 ML IVPB SCH ×3 (00:14→13:34)
[2019-11-17] MEDS: HYDROmorphone 0.5 MG/0.5 ML SYRINGE IVP PRN (00:34)
[2019-11-17] MEDS: SODIUM CHLORIDE 0.9% 1,000 ML IV SCH ×2 (04:35→14:22)
[2019-11-17] MEDS ORDERED: VANCOMYCIN TROUGH DUE 1 EACH MISC MISCELLANE ONE (06:00)
[2019-11-17 06:20] LABS: Basophils % (A) 0 %; Eosinophils # (A) 0.1 k/uL (0-0.7); Eosinophils % (A) 2 %; HGB 11.7 gm/dL (11.4-16.0); Lymphocytes # (A) 1.8 k/uL (1.0-4.8); Lymphocytes % (A) 27 %; MCH 32.8 pg (25.0-35.0); MCHC 31.6 g/dL (31.0-37.0); MCV 103.7 fL (80.0-100.0); Macrocytosis Slight; Monocytes # (A) 0.5 k/uL (0-1.0); Monocytes % (A) 8 %; Neutrophils # (A) 3.8 k/uL (1.3-7.7); Neutrophils % (A) 59 %; Platelet Count 274 k/uL (150-450); RBC 3.57 m/uL (3.80-5.40); RDW 12.6 % (11.5-15.5); WBC 6.5 k/uL (3.8-10.6)
[2019-11-17 06:38] LABS: African American GFR (CKD) >90 (>60 ml/min/1.73 sqM); Anion Gap 4 mmol/L; Blood Urea Nitrogen 14 mg/dL (7-17); Carbon Dioxide 25 mmol/L (22-30); Chloride 109 mmol/L (98-107); Glucose 98 mg/dL (74-99); Non-African American GFR(CKD) >90 (>60 ml/min/1.73 sqM); Potassium 3.6 mmol/L (3.5-5.1); Sodium 138 mmol/L (137-145)
[2019-11-17 06:59] VITALS: PULSE 67
[2019-11-17] MEDS: HEPARIN SODIUM,PORCINE 5,000 UNIT/ML 1 ML VIAL SQ SCH (08:03)
[2019-11-17] MEDS: KETOROLAC 30 MG/ML 1 ML VIAL IVP PRN (08:03)
[2019-11-17] MEDS: PANTOPRAZOLE 40 MG TABLET PO SCH (08:03)
[2019-11-17] MEDS: tiZANidine 4 MG TAB PO SCH (08:38)
[2019-11-17] MEDS: NON FORMULARY DRUG (Buprenorphine Hcl/Naloxone Hcl [Suboxone 8 Mg-2 Mg Sl Film] 1 FILM) SUBLINGUAL SCH (08:39)
[2019-11-17 14:12] VITALS: BP 131/90; RESP 16; TEMP 98.7
--- NOTE | 2019-11-17 18:44 | PN ---
PROGRESS NOTE DATE OF SERVICE: 11/17/2019. REASON FOR FOLLOWUP VISIT: Right-sided pyelonephritis. INTERVAL HISTORY: The patient is currently afebrile. Patient is breathing comfortably. The patient is feeling back to her baseline. The right flank pain has resolved. No nausea, no vomiting. No chest pain, shortness of breath or cough. No abdominal pain. No diarrhea. PHYSICAL EXAMINATION: Blood pressure 120/76 with a pulse of 57, temperature 98.4. She is 100% on room air. General description is a middle-aged female up in the chair in no distress. Respiratory system: Unlabored breathing. Clear to auscultation anteriorly. Heart S1, S2. Regular rate and rhythm. ABDOMEN: Soft, no tenderness. EXTREMITIES: No edema of the feet. LABS: Hemoglobin 11.2, white count 6.3, creatinine 0.40. Repeat UA is negative. Blood and urine culture so far negative. DIAGNOSTIC IMPRESSION AND PLAN: Patient admitted to the hospital with right flank pain, some low-grade fever in this patient who did have a CT suspicious for multifocal right-sided pyelonephritis. However, her urine was not significantly positive with a culture remains to be negative. Currently the patient has shown overall clinical improvement on Rocephin. We will switch her over to oral Ceftin 500 mg twice a day for 10 days with the patient to follow up with Urology in outpatient setting and repeating a CT scan to make sure the abnormality seen on the right kidney is resolved. If not, she may need further workup. She responded yes to understanding instructions. As she is insisting on going home, we will let her go home. MMODL / IJN: [id number] /
--- NOTE | 2019-11-18 11:08 | DS ---
DISCHARGE SUMMARY DATE OF SERVICE: 11/17/2019 FINAL DIAGNOSES: 1. Acute multifocal right pyelonephritis with possible sepsis, present on admission. 2. Increased WBC. 3. Increased MCV. 4. Hypertension. 5. History of avascular necrosis of both hips, status post prostheses. 6. Nephrolithiasis. 7. History of degenerative joint disease. 8. History of anxiety, depression. 9. History of polysubstance abuse including alcohol, cocaine, methamphetamine, nicotine dependence per chart. 10.FULL CODE. DISCHARGE DISPOSITION: The patient will be discharged in a stable condition with guarded prognosis. Dr. Frederick cleared the patient for discharge. Patient is keen on going home. HISTORY OF PRESENT ILLNESS: This is a 34-year-old woman with a past medical history of multiple medical problems, admitted with acute multifocal right pyelonephritis and pain. The pre sepsis suspected in the beginning. Cultures are negative. Patient treated with empiric antibiotic. Dr. Frederick for saw the patient. CAT scan of the abdomen confirmed the multiple multifocal nature of the pyelonephritis. Recommend close followup in the outpatient setting at this time. Patient; however, is extremely keen on going home. On exam, alert and oriented x3. Vitals are normal. CARDIOVASCULAR SYSTEMS: S1, S2, muffled. RESPIRATION: Breath sounds diminished at the bases. ABDOMEN: Soft, nontender. NERVOUS SYSTEM: No focal deficits. DISCHARGE ADVICE: Diet is cardiac diet. Activity limited until followup. Follow up with Dr. Renteria in 2 in 2-3 days. Medications are as follow Dr. Frederick has recommended. Follow up CAT scan down the line in 1-2 months to ensure stability. MEDICATION: 1. Ibuprofen 800 mg q.6h p.r.n. 2. suboxone1 sublingual by b.i.d. 3. Albuterol 2 puffs q.i.d. p.r.n. 4. Zanaflex 4 mg p.o. b.i.d. 5. Ceftin 500 mg p.o. b.i.d. for 10 days. MMODL / IJN: [id number] / MTDD
== END 2019-11-17 15:59 | disposition home or self-care (01) | DRG 872 ==
LOC: EC 14:04 → 6NMEDSUR 16:04
PROVIDERS: ADMIT Hospitalist; ATTEND Hospitalist
DX: A41.9 Sepsis, unspecified organism (principal); N10 Acute pyelonephritis; F17.200 Nicotine dependence, unspecified, uncomplicated; I10 Essential (primary) hypertension; F32.9 Major depressive disorder, single episode, unspecified; F41.9 Anxiety disorder, unspecified; I08.1 Rheumatic disorders of both mitral and tricuspid valves; Z87.442 Personal history of urinary calculi; Z96.643 Presence of artificial hip joint, bilateral; Z79.899 Other long term (current) drug therapy; Z88.2 Allergy status to sulfonamides
CPT/HCPCS: 36415; 74177; 80048; 80053; 80202; 80306; 81001; 81003; 81025; 82150; 83605; 83690; 85025; 85652; 86140; 87040; 87086; 93306; 96361; 96365; 96367; 96375; 99285

== ENCOUNTER 2020-12-23 10:10 | Emergency (ER) | payer OTHER, MEDICARE ==
[2020-12-23 10:18] VITALS: RESP 18; TEMP 98
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
[2020-12-23] MEDS ORDERED: ACETAMINOPHEN TAB 325 MG TAB PO STA (11:41)
--- NOTE | 2020-12-23 12:21 | XR ---
AP pelvis HISTORY: Pain, trauma Frontal view of the pelvis submitted, correlation to CT scan 11/14/2019 Bilateral hip arthroplasties are present. Metallic densities adjacent to the proximal right femur are again noted. Cerclage wires, side plate seen on prior CT are not seen on today's exam along the righ t hip prosthesis, correlate for interval surgery. Multiple calcifications are present within the pelv is likely representing phleboliths. Joint spaces and alignment are maintained. IMPRESSION: No acute fracture or dislocation.
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
[2020-12-23 13:06] VITALS: BP 135/93; PULSE 64
[2020-12-23 13:13] LABS: Appearance,Urine Cloudy (Clear); Bacteria,Urine Rare /hpf; Bilirubin,Urine Negative (Negative); Blood,Urine Large (Negative); Color,Urine Yellow; Glucose,Urine (UA) Negative (Negative); Hyaline Casts,Urine 1 /lpf (0-2); Ketones,Urine 2+ (Negative); Leukocyte Esterase,Urine Negative (Negative); Mucus,Urine Few /hpf; Nitrite,Urine Negative (Negative); Protein,Urine Trace (Negative); RBC,Urine 6 /hpf (0-5); Specific Gravity,Urine 1.016 (1.001-1.035); Squamous Epithelial Cell,Urine 4 /hpf (0-4); Urobilinogen,Urine <2.0 mg/dL (<2.0); WBC,Urine 4 /hpf (0-5)
[2020-12-23 13:17] LABS: Amphetamine Screen,Urine Detected (NotDetected); Barbiturate Screen,Urine Not Detected (NotDetected); Benzodiazepines Screen,Urine Not Detected (NotDetected); Cocaine Screen,Urine Not Detected (NotDetected); Methadone Screen, Urine Not Detected (NotDetected); Opiate Screen,Urine Not Detected (NotDetected); Oxycodone Screen, Urine Not Detected (NotDetected); Phencyclidine Screen,Urine Not Detected (NotDetected); Tricyclic Antidepressant,Urine Not Detected (NotDetected); Urn Cannabinoid Scrn Detected (NotDetected)
== END 2020-12-23 13:06 | disposition home or self-care (01) ==
LOC: EC 10:10
DX: M54.2 Cervicalgia (principal); M25.551 Pain in right hip; R07.89 Other chest pain; M25.552 Pain in left hip; Z96.643 Presence of artificial hip joint, bilateral; Z88.2 Allergy status to sulfonamides; V43.52XA Car driver injured in collision with other type car in traffic accident, initial encounter; Y92.410 Unspecified street and highway as the place of occurrence of the external cause
CPT/HCPCS: 70450; 71250; 72125; 72170; 80306; 81001; 81025; 82075; 99284

== ENCOUNTER 2021-04-16 14:00 | Inpatient (IN) | payer MEDICARE, MEDICAID ==
--- NOTE | 2021-04-16 15:05 | ED ---
Altered Mental Status HPI - General Source: patient, RN notes reviewed Mode of arrival: ambulatory Limitations: no limitations <Harry Molina - Last Filed: 04/16/21 19:12> <Andry Galvan - Last Filed: 04/16/21 19:16> - General Chief Complaint: Altered Mental Status Stated Complaint: Possible Hypothermic, Possible Overdose Time Seen by Provider: 04/16/21 14:10 - History of Present Illness Initial Comments: 35-year-old female presents emergency from with police for psychiatric evaluation. Patient does admit to methamphetamine use, alcohol use. Patient states that she's been using more daily as her depression has been worsening. She states she used earlier this morning states that she was with her ex-boyfriend and states that she was along the water that her ex-boyfriend was in the water so she jumped in. Patient's is unclear she is suicidal or not denies any homicidal ideation denies any physical complaints of the usual states she has chronic hip pain. Patient denies any head injury no loss conscious. (Harry Molina) - Related Data Home Medications Medication Instructions Recorded Confirmed tiZANidine [Zanaflex] 4 mg PO BID PRN 11/14/19 04/16/21 Ibuprofen [Motrin] 800 mg PO TID PRN 04/16/21 04/16/21 Mirtazapine [Remeron] 30 mg PO HS 04/16/21 04/16/21 Naltrexone HCl [Revia] 50 mg PO HS 04/16/21 04/16/21 hydrOXYzine pamoate [Vistaril] 25 mg PO QID PRN 04/16/21 04/16/21 Allergies Allergy/AdvReac Type Severity Reaction Status Date / Time Sulfa (Sulfonamide Allergy Rash/Hives/ Verified 04/16/21 16:25 Antibiotics) Swelling Review of Systems ROS Other: All systems not noted in ROS Statement are negative. <Harry Molina - Last Filed: 04/16/21 19:12> ROS Other: All systems not noted in ROS Statement are negative. <Andry Galvan - Last Filed: 04/16/21 19:16> ROS Statement: Those systems with pertinent positive or pertinent negative responses have been documented in the HPI. Past Medical History Past Medical History: Hypertension Additional Past Medical History / Comment(s): vascular necrosis-prosthetic hips, kidney stones History of Any Multi-Drug Resistant Organisms: None Reported Past Surgical History: Orthopedic Surgery Additional Past Surgical History / Comment(s): valerie HIP REPLACEMENT Past Anesthesia/Blood Transfusion Reactions: No Reported Reaction Past Psychological History: Anxiety, Depression Past Alcohol Use History: Occasional Past Drug Use History: Cocaine, Methamphetamine - Past Family History Father History Unknown: Yes Additional Family Medical History / Comment(s): Pt is adopted <Harry Molina - Last Filed: 04/16/21 19:12> General Exam Limitations: no limitations General appearance: alert, in no apparent distress Head exam: Present: atraumatic, normocephalic, normal inspection Eye exam: Present: normal appearance, PERRL, EOMI. Absent: scleral icterus, conjunctival injection, periorbital swelling ENT exam: Present: normal exam, mucous membranes moist Neck exam: Present: normal inspection. Absent: tenderness, meningismus, lymphadenopathy Respiratory exam: Present: normal lung sounds bilaterally. Absent: respiratory distress, wheezes, rales, rhonchi, stridor Cardiovascular Exam: Present: regular rate, normal rhythm, normal heart sounds. Absent: systolic murmur, diastolic murmur, rubs, gallop, clicks GI/Abdominal exam: Present: soft, normal bowel sounds. Absent: distended, tenderness, guarding, rebound, rigid Neurological exam: Present: alert, oriented X3 Psychiatric exam: Present: depressed, flat affect <Harry Molina - Last Filed: 04/16/21 19:12> Course Vital Signs 04/16/21 14:02 Temperature 97.5 F L Pulse Rate 54 L Respiratory 20 Rate Blood Pressure 136/93 O2 Sat by Pulse 100 Oximetry Medical Decision Making <Harry Molina - Last Filed: 04/16/21 19:12> <Andry Galvan - Last Filed: 04/16/21 19:16> - Medical Decision Making Patient admitted by psychiatric services after evaluation (Harry Molina) Patient seen by mental health services with plans for psychiatric admission. Patient reevaluated and reexamined by myself, Dr. Galvan. I agree with PA findings. This includes diagnostic interpretation and treatment plan. Patient amiss to having depression. Patient omits to her methamphetamine use and increasing her psychosis. Patient also admits to alcohol use. Patient earlier cannot state whether or not she was suicidal. Patient has been hallucinating and jumping in the river. Patient also reportedly has been hearing voices. Positive clinical certificate completed. (Andry Galvan) - Lab Data Lab Results 04/16/21 Range/Units 14:20 Urine Opiates Screen Not Detected (NotDetected) Ur Oxycodone Screen Not Detected (NotDetected) Urine Methadone Screen Not Detected (NotDetected) Ur Propoxyphene Screen Not Detected (NotDetected) Ur Barbiturates Screen Not Detected (NotDetected) U Tricyclic Antidepress Not Detected (NotDetected) Ur Phencyclidine Scrn Not Detected (NotDetected) Ur Amphetamines Screen Detected H (NotDetected) U Methamphetamines Scrn Detected H (NotDetected) U Benzodiazepines Scrn Not Detected (NotDetected) Urine Cocaine Screen Not Detected (NotDetected) U Marijuana (THC) Screen Detected H (NotDetected) Disposition <Harry Molina - Last Filed: 04/16/21 19:12> <Andry Galvan - Last Filed: 04/16/21 19:16> Clinical Impression: Drug abuse, Depression Disposition: TRANSFER TO PSYCH HOSP/UNIT Referrals: None,Stated [Primary Care Provider] - 1-2 days
[2021-04-16 16:02] LABS: Amphetamine Screen,Urine Detected (NotDetected); Barbiturate Screen,Urine Not Detected (NotDetected); Benzodiazepines Screen,Urine Not Detected (NotDetected); Cocaine Screen,Urine Not Detected (NotDetected); Methadone Screen, Urine Not Detected (NotDetected); Opiate Screen,Urine Not Detected (NotDetected); Oxycodone Screen, Urine Not Detected (NotDetected); Phencyclidine Screen,Urine Not Detected (NotDetected); Tricyclic Antidepressant,Urine Not Detected (NotDetected); Urn Cannabinoid Scrn Detected (NotDetected)
[2021-04-16] MEDS ORDERED: MAG HYDROX/AL HYDROX/SIMETH 30 ML CUP PO PRN (20:15)
[2021-04-16] MEDS ORDERED: MAGNESIUM HYDROXIDE 2,400 MG/10 ML CUP PO PRN (20:15)
[2021-04-16] MEDS ORDERED: LORazepam 2 MG/ML INJ IM PRN (20:18)
[2021-04-16] MEDS ORDERED: HALOPERIDOL LACTATE 5 MG/ML 1 ML VIAL IM PRN (20:18)
[2021-04-16] MEDS ORDERED: haloperidoL 5 MG TAB PO PRN (20:18)
[2021-04-16 21:03] VITALS: RESP 18
[2021-04-16] MEDS: LORazepam 1 MG TAB PO PRN (21:19)
[2021-04-16] MEDS: ACETAMINOPHEN TAB 325 MG TAB PO PRN (21:19)
[2021-04-16] MEDS: QUEtiapine 100 MG TAB PO SCH (21:19)
--- NOTE | 2021-04-17 03:13 | P.PN ---
Progress Note - Text Progress Note Date: 04/16/21 patient inappropriate for medical evaluation at this time
[2021-04-17] MEDS: NICOTINE 14MG/24HR PATCH TRANSDERM SCH (09:45)
[2021-04-17 10:50] LABS: Basophils # (A) 0.1 k/uL (0-0.2); Basophils % (A) 1 %; Eosinophils # (A) 0.3 k/uL (0-0.7); Eosinophils % (A) 5 %; HCT 44.6 % (34.0-46.0); HGB 14.3 gm/dL (11.4-16.0); Lymphocytes # (A) 2.1 k/uL (1.0-4.8); Lymphocytes % (A) 40 %; MCH 32.5 pg (25.0-35.0); MCHC 32.1 g/dL (31.0-37.0); MCV 101.1 fL (80.0-100.0); Macrocytosis Slight; Mean Platelet Volume 6.3; Monocytes # (A) 0.4 k/uL (0-1.0); Monocytes % (A) 7 %; Neutrophils # (A) 2.4 k/uL (1.3-7.7); Neutrophils % (A) 45 %; Platelet Count 333 k/uL (150-450); RBC 4.41 m/uL (3.80-5.40); RDW 13.1 % (11.5-15.5); WBC 5.3 k/uL (3.8-10.6)
[2021-04-17 11:00] LABS: ALT 25 U/L (4-34); AST 45 U/L (14-36); African American GFR (CKD) >90 (>60 ml/min/1.73 sqM); Albumin 4.3 g/dL (3.5-5.0); Alkaline Phosphatase 61 U/L (38-126); Anion Gap 7 mmol/L; Blood Urea Nitrogen 17 mg/dL (7-17); Calcium 9.4 mg/dL (8.4-10.2); Carbon Dioxide 25 mmol/L (22-30); Chloride 106 mmol/L (98-107); Glucose 81 mg/dL (74-99); Non-African American GFR(CKD) >90 (>60 ml/min/1.73 sqM); Sodium 138 mmol/L (137-145); Total Bilirubin 1.7 mg/dL (0.2-1.3); Total Protein 6.9 g/dL (6.3-8.2)
--- NOTE | 2021-04-17 12:21 | P.HP ---
Psychiatric H&P - . H&P Date: 04/17/21 History & Physical: IDENTIFYING DATA: Fior is a 35-year-old [place] female admitted to the psychiatric unit involuntarily. HISTORY OF PRESENT ILLNESS: According to the petition completed by the EPS nurse, she was found [place] swimming towards a delusional object. A bystander called the police who brought hospital. At the time of her presentation to ED she was "hearing and seeing people that were not there." I reviewed the medical record and attempted to interview the patient. She was markedly sedated and provided little information. Her primary complaint was that she was "tired" and appeared markedly fatigued throughout the interview. She stated that the police brought to the hospital because she thought she saw her ex-boyfriend floating in the river. At the time of our interview she denied experiencing auditory, visual or olfactory hallucinations. She acknowledged that she was mistaken about her ex-boyfriend. When I asked her what may have contributed to her confusion she replied that she has been drinking and drugging. She has been insufflating, smoking and injecting methamphetamine. In addition she stated that she has been abusing Xanax, marijuana and alcohol. Her UDS was positive for amphetamine, methamphetamine and marijuana. Her breath alcohol level was 0. PAST PSYCHIATRIC HISTORY: This is her third admission to our psychiatric unit. 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 She was not forthcoming about her psychiatric history. PAST MEDICAL HISTORY: She has a history of acute multifocal right pyelonephritis, avascular necrosis of both hips, nephrolithiasis, degenerative joint disease ALLERGIES: Sulfa SUBSTANCE USE HISTORY: She has history of alcohol and substance use problem. She is a history of alcohol use disorder she can empty 1/5 a day since age of 17 with brief periods of sobriety. Her longest period of sobriety was 1 year when she was in [facility]. She has a history of withdrawal seizures from alcohol and Xanax. She smokes marijuana daily. She has been using methamphetamine for approximately the last year. She has been in substance abuse treatment program 6 times. FAMILY PSYCHIATRIC/SUBSTANCE USE HISTORY: Unknown because she was adopted LEGAL HISTORY: She had a felony conviction following her third DUI convictions and September 2016. She is not on probation, parole or has pending charges. SOCIAL HISTORY: She was adopted at the age of 1 or 1. She has no children of her own. She is . She is currently unemployed and receiving disability secondary to avascular necrosis of hips. She graduate high school. She has 3 brothers. She denied a history of abuse. She is currently homeless. MENTAL STATUS EXAM: She presented as his sedated and minimally cooperative 35-year-old [place] female. Date intermittent eye contact and had difficulty concentrating and attending to the interview. She had tattoos on her arms but no prominent physical abnormalities. She had a flat facial expression. She is alert and oriented to person and place. She had marked psychomotor retardation in a slow but steady gait. Her speech was not spontaneous, dysarthric and with decrease in rate and rhythm. His affect was flat. She denied current suicidal ideation, wishes or homicidal ideation. She did not express ideas reference, paranoid ideation or delusions. Her thinking was concrete. Associations were goal-directed. She denied hallucinations did not appear to be responding to internal stimuli. Global impression of intellect is average. She has awareness of her illness and need for treatment. STRENGTHS: Stable physical health, stable income WEAKNESSES: Chronic substance use problems, lack of housing, poor social supports IMPRESSION: She is 35-year-old [place] woman admitted psychiatric unit voluntarily and an agitated and delusional state. She has had prior psychiatric hospitalizations and has history of alcohol and drug use problems. She has been using methamphetamine for approximately the last 12 months. As a result of amphetamine use she has periods of confusion, delusions and hallucinations. She is also unable to maintain gainful employment and has been alienated from her friends and family. She is treated inpatient basis with combination of psychopharmacology and multimodal therapy. PRINCIPLE DIAGNOSIS: Substance-induced psychotic disorder, substance-induced mood disorder, methamphetamine use disorder severe, benzodiazepine use disorder severe, alcohol use disorder severe, lack of stable housing RECOMMENDATION: Admit to the psychiatric unit. Voluntary admission. Consult medicine for initial physical exam medical history. facility maintenance worker completed initial psychosocial assessment to coordinate discharge and aftercare. Seroquel 100 mg at bedtime PRN for sleep, Habitrol for smoking cessation, Ativan and/or Haldol for agitation, aggression acute psychosis. Encourage participation in substance abuse treatment program. Evaluate clinical status response to treatment daily basis. Encourage participation in therapeutic groups and activities. Allergies Allergy/AdvReac Type Severity Reaction Status Date / Time Sulfa (Sulfonamide Allergy Rash/Hives/ Verified 04/16/21 16:25 Antibiotics) Swelling Vital Signs Temp 97.7 F 04/16/21 20:56 Pulse 66 04/16/21 20:56 Resp 18 04/16/21 20:56 BP 112/74 04/16/21 20:56 Pulse Ox 100 04/16/21 14:02 Intake & Output 04/16/21 04/17/21 04/17/21 18:59 06:59 18:59 Weight 72.575 kg 67.7 kg Laboratory Last Values WBC 5.3 k/uL (3.8-10.6) 04/17/21 10:16 RBC 4.41 m/uL (3.80-5.40) 04/17/21 10:16 Hgb 14.3 gm/dL (11.4-16.0) 04/17/21 10:16 Hct 44.6 % (34.0-46.0) 04/17/21 10:16 MCV 101.1 fL (80.0-100.0) H 04/17/21 10:16 MCH 32.5 pg (25.0-35.0) 04/17/21 10:16 MCHC 32.1 g/dL (31.0-37.0) 04/17/21 10:16 RDW 13.1 % (11.5-15.5) 04/17/21 10:16 Plt Count 333 k/uL (150-450) 04/17/21 10:16 MPV 6.3 04/17/21 10:16 Neutrophils % 45 % 04/17/21 10:16 Lymphocytes % 40 % 04/17/21 10:16 Monocytes % 7 % 04/17/21 10:16 Eosinophils % 5 % 04/17/21 10:16 Basophils % 1 % 04/17/21 10:16 Neutrophils # 2.4 k/uL (1.3-7.7) 04/17/21 10:16 Lymphocytes # 2.1 k/uL (1.0-4.8) 04/17/21 10:16 Monocytes # 0.4 k/uL (0-1.0) 04/17/21 10:16 Eosinophils # 0.3 k/uL (0-0.7) 04/17/21 10:16 Basophils # 0.1 k/uL (0-0.2) 04/17/21 10:16 Macrocytosis Slight 04/17/21 10:16 Sodium 138 mmol/L (137-145) 04/17/21 10:16 Potassium 4.0 mmol/L (3.5-5.1) 04/17/21 10:16 Chloride 106 mmol/L (98-107) 04/17/21 10:16 Carbon Dioxide 25 mmol/L (22-30) 04/17/21 10:16 Anion Gap 7 mmol/L 04/17/21 10:16 BUN 17 mg/dL (7-17) 04/17/21 10:16 Creatinine 0.68 mg/dL (0.52-1.04) 04/17/21 10:16 Est GFR (CKD-EPI)AfAm >90 (>60 ml/min/1.73 sqM) 04/17/21 10:16 Est GFR (CKD-EPI)NonAf >90 (>60 ml/min/1.73 sqM) 04/17/21 10:16 Glucose 81 mg/dL (74-99) 04/17/21 10:16 Calcium 9.4 mg/dL (8.4-10.2) 04/17/21 10:16 Total Bilirubin 1.7 mg/dL (0.2-1.3) H 04/17/21 10:16 AST 45 U/L (14-36) H 04/17/21 10:16 ALT 25 U/L (4-34) 04/17/21 10:16 Alkaline Phosphatase 61 U/L (38-126) 04/17/21 10:16 Total Protein 6.9 g/dL (6.3-8.2) 04/17/21 10:16 Albumin 4.3 g/dL (3.5-5.0) 04/17/21 10:16 TSH 1.940 mIU/L (0.465-4.680) 04/17/21 10:16 Urine Opiates Screen Not Detected (NotDetected) 04/16/21 14:20 Ur Oxycodone Screen Not Detected (NotDetected) 04/16/21 14:20 Urine Methadone Screen Not Detected (NotDetected) 04/16/21 14:20 Ur Propoxyphene Screen Not Detected (NotDetected) 04/16/21 14:20 Ur Barbiturates Screen Not Detected (NotDetected) 04/16/21 14:20 U Tricyclic Antidepress Not Detected (NotDetected) 04/16/21 14:20 Ur Phencyclidine Scrn Not Detected (NotDetected) 04/16/21 14:20 Ur Amphetamines Screen Detected (NotDetected) H 04/16/21 14:20 U Methamphetamines Scrn Detected (NotDetected) H 04/16/21 14:20 U Benzodiazepines Scrn Not Detected (NotDetected) 04/16/21 14:20 Urine Cocaine Screen Not Detected (NotDetected) 04/16/21 14:20 U Marijuana (THC) Screen Detected (NotDetected) H 04/16/21 14:20 04/17/21 12:01
[2021-04-17 18:02] LABS: Chol/HDL Ratio 1.66; Cholesterol 206 mg/dL (0-200); LDL Cholesterol,Calculated 68.8 mg/dL (0.0-131.0)
[2021-04-17] MEDS: QUEtiapine 100 MG TAB PO SCH (20:42)
[2021-04-17] MEDS: ACETAMINOPHEN TAB 325 MG TAB PO PRN (20:42)
[2021-04-17 21:13] LABS: Hemoglobin A1C 4.8 % (4.0-6.0)
--- NOTE | 2021-04-17 23:11 | P.MDCNMH ---
History of Present Illness H&P Date: 04/17/21 Chief Complaint: Medical evaluation 35-year-old female with history of depression Patient is withdrawn however she did tell me that she has overwhelming depression for which she does heavy consumption of alcohol and at times does some drugs recently did some elevated mean she felt impulsive and ended up in the mental health unit she didn't go over the details of the incident however she denied being suicidal or homicidal Currently denies any medical concerns she denies any abdominal pain nausea vomiting fevers chills chest now or trouble breathing she denies any upper respiratory infection symptoms denies any GI bleeding Review of Systems Pertinent positives as noted in HPI. All other systems were reviewed and are negative Past Medical History Past Medical History: Hypertension Additional Past Medical History / Comment(s): vascular necrosis-prosthetic hips, kidney stones History of Any Multi-Drug Resistant Organisms: None Reported Past Surgical History: Orthopedic Surgery Additional Past Surgical History / Comment(s): valerie HIP REPLACEMENT Past Anesthesia/Blood Transfusion Reactions: No Reported Reaction Past Psychological History: Anxiety, Depression Smoking Status: Current every day smoker Past Alcohol Use History: Occasional Past Drug Use History: Cocaine, Methamphetamine - Past Family History Father History Unknown: Yes Additional Family Medical History / Comment(s): Pt is adopted Medications and Allergies Home Medications Medication Instructions Recorded Confirmed Type tiZANidine [Zanaflex] 4 mg PO BID PRN 11/14/19 04/16/21 History Ibuprofen [Motrin] 800 mg PO TID PRN 04/16/21 04/16/21 History Mirtazapine [Remeron] 30 mg PO HS 04/16/21 04/16/21 History Naltrexone HCl [Revia] 50 mg PO HS 04/16/21 04/16/21 History hydrOXYzine pamoate [Vistaril] 25 mg PO QID PRN 04/16/21 04/16/21 History Allergies Allergy/AdvReac Type Severity Reaction Status Date / Time Sulfa (Sulfonamide Allergy Rash/Hives/ Verified 04/16/21 16:25 Antibiotics) Swelling Physical Exam Vitals: Vital Signs Pulse Pulse BP BP 04/17/21 17:49 89 104/64 04/17/21 14:52 58 L 92/57 Constitutional: No acute distress, conversant, pleasant Eyes: Anicteric sclerae, moist conjunctiva, Pupils equal round reactive to light ENMT: NC/AT Oropharynx clear, no erythema, or exudates Neck: Supple, FROM, no masses, or JVD No carotid bruits No thyromegaly Lungs: Clear to auscultation Clear to percussion Normal respiratory effort, no accessory muscle use Cardiovascular: Heart regular in rate and rhythm, No murmurs, gallops, or rubs No peripheral edema Abdominal: Soft Nontender, no guarding, rebound or rigidity Abdomen moving with respiration Normoactive bowel sounds No hepatomegaly, No splenomegaly No palpable mass No abdominal wall hernia noted Skin: Normal temperature, tone, texture, turgor No induration No subcutaneous nodules No rash, lesions No ulcers Extremities: No digital cyanosis No clubbing Pedal pulses intact and symmetrical Radial pulses intact and symmetrical No calf tenderness Psychiatric: Alert and oriented to person, place and time Depressed affect fair judgement Neuro Muscles Strength 5/5 in all 4 extremities Sensation to light touch grossly present throughout Cranial nerves II-XII grossly intact No focal sensory deficits Lymphatics: no palpable cervical or supraclavicular , or inguinal lymph nodes Cranial Nerve Examination - Cranial Nerves Cranial Nerve II- Optic: Intact Cranial Nerve III- Oculomotor: Intact Cranial Nerve IV- Trochlear: Intact Cranial Nerve V- Trigeminal: Intact Cranial Nerve - Abducens: Intact Cranial Nerve VII- Facial: Intact Cranial Nerve VIII- Auditory: Intact Cranial Nerve IX- Glossopharyngeal: Intact Cranial Nerve X- Vagus: Intact Cranial Nerve XI- Accessory: Intact Cranial Nerve XII- Hypoglossal: Intact Results CBC & Chem 7: 04/17/21 10:16 04/17/21 10:16 Labs: Abnormal Lab Results - Last 24 Hours (Table) 04/17/21 04/17/21 Range/Units 10:16 10:16 MCV 101.1 H (80.0-100.0) fL Total Bilirubin 1.7 H (0.2-1.3) mg/dL AST 45 H (14-36) U/L Cholesterol 206 H (0-200) mg/dL HDL Cholesterol 124.0 H (40.0-60.0) mg/dL Assessment and Plan Assessment: Depression Polysubstance abuse Management per psych Alcohol abuse Monitor for alcohol withdrawal Benzos per CIWA scale Thiamine Slightly elevated liver enzymes most likely secondary to alcohol abuse Monitor liver enzymes Thank you for allowing us to participate in the care of this patient. We will follow peripherally. Do not hesitate to contact us with questions. Someone can be reached from the [facility] hospitalist group at all hours of the day at [phone].
[2021-04-18] MEDS: THIAMINE 100 MG TAB PO SCH (07:57)
[2021-04-18] MEDS: NICOTINE 14MG/24HR PATCH TRANSDERM SCH (07:57)
--- NOTE | 2021-04-18 12:30 | P.PN ---
Progress Note - Text Progress Note Date: 04/18/21 Clinical Problems: Substance-induced psychotic disorder, substance-induced mood disorder, methamphetamine use disorder severe, benzodiazepine use disorder severe, alcohol use disorder severe, lack of stable housing Interim history: I reviewed the medical record and interviewed the patient. She stated that she is "ready for discharge." However during the interview she became acutely distressed and tearful when he talked about her life. She has no stable housing and and has concerns about her relationship with long-term boyfriend. She was concerned about the relationship but talked in generalities avoiding specific concerns. She denied experiencing auditory, visual or olfactory hallucinations, ideas reference, thought insertion or thought broadcasting. She is not interested currently in entering another suspects abuse rehabilitation program. Medical consult appreciated. Mental status exam: She presented as a casually groomed [place] female with studs on her left cheek. She made eye contact and attended to the interview. She had psychomotor retardation but no abnormal involuntary movements. Her speech was spontaneous with marked decreased rate, rhythm and volume. She had no articulation difficulties. Her affect was depressed and not reactive. She denied suicidal ideation and wishes. She denied homicidal ideation. She did not express feelings of hopelessness, helplessness or worthlessness. She denied ideas reference, paranoid ideation did not express delusional thoughts or beliefs. Her thinking was concrete but organized, coherent and goal directed. She denied hallucinations did not appear to responding to internal stimuli. Assessment: She has signs and symptoms of amphetamine withdrawal with anhedonia, anergy, depression and listlessness. Plan: Continue inpatient treatment plan. Safety precautions. Continue discuss substance abuse rehabilitation. Continue Seroquel 100 mg at bedtime. Ativan and Haldol for anxiety, agitation acute psychosis, Habitrol for smoking cessation, continue vitamin B-1. Encourage participation in therapeutic groups and activities. Evaluate clinical status response to treatment daily basis.
[2021-04-18] MEDS: QUEtiapine 100 MG TAB PO SCH (20:42)
[2021-04-18] MEDS: LORazepam 1 MG TAB PO PRN (21:05)
[2021-04-19] MEDS: THIAMINE 100 MG TAB PO SCH (09:05)
[2021-04-19] MEDS: NICOTINE 14MG/24HR PATCH TRANSDERM SCH (09:06)
[2021-04-19] MEDS: ACETAMINOPHEN TAB 325 MG TAB PO PRN (09:06)
[2021-04-19] MEDS: ESCITALOPRAM 10 MG TAB PO SCH (12:23)
--- NOTE | 2021-04-19 13:07 | P.PN ---
Progress Note - Text Progress Note Date: 04/19/21 Interval History: Patient was seen wandering the hallways and was directable and agreeable to razia tran with show card writer in the office. Patient has a depressed affect today and claims that her mood has been depressed and experiencing anxiety. She states that she came into the hospital because she was "swimming to sobriety". She states that she has been using methamphetamine daily however was attempting to minimize this. She claims that she has struggled with math for quite some time now and has been ending it difficult to quit. She states that she is feeling depressed during the day and is agreeable to start an antidepressant today Lexapro. She claims that she feels "hung over" in the morning due to the Seroquel and requested to have a decreased. She states that she is unsure if she is bipolar or not and has received a diagnosis in the past. She claims that she has not been going to groups and we'll attempt to participate in them today. At this time patient denies any suicidal or homical ideations, intent or plan. Patient denies any auditory, visual hallucinations and denies any paranoia or delusions. Patient denies any side effects from the medications and has been compliant with meds. Mental Status Exam: General Appearance: Patient appears to be stated age is alert, directable, and cooperative. Multiple tattoos Behavior: Patient is calmly seated without any agitated behavior. Speech: Patient's speech is fluent and nonpressured. Soft tone of voice Mood/Affect: Mood is depressed and anxious, affect is congruent and constricted. Suicidality/Homicidality: Patient denies having any suicidal or homicidal ideation intent or plan. Perceptions: Patient denies any visual hallucinations and denies any auditory hallucinations Though content/process: There is no evidence of any delusional thought content and thought process is linear and goal-directed. Memory and concentration: AOX3, grossly intact for the purposes of this session Judgment and insight: Poor, Improving mildly Assessment Substance-induced psychotic disorder Depressive disorder unspecified methamphetamine use disorder severe, alcohol use disorder severe lack of stable housing Plan: -Patient continues to meet criteria for inpatient psychiatric admission for symptom stabilization and safety. Patient has signed adult voluntary form and medication consent and was placed in patient's chart. -Medications: Decreased Seroquel to 50 mg daily at bedtime for mood stabilization/psychosis/insomnia. Patient is agreeable to start Lexapro today 10 mg daily/anxiety. -When necessary Ativan and Haldol for agitation/aggression. -NRT - nicotine patch -SW on board for discharge planning. Encouraged the patient to participate in milieu. Patient will be thinking about rehab versus sober house for discharge planning. Likely discharge in 1-2 days.
[2021-04-19] MEDS ORDERED: QUEtiapine 25 MG TAB PO SCH (21:00)
[2021-04-19] MEDS: QUEtiapine 50 MG TAB PO SCH (21:56)
[2021-04-19] MEDS: LORazepam 1 MG TAB PO PRN (21:57)
[2021-04-20] MEDS: THIAMINE 100 MG TAB PO SCH (09:06)
[2021-04-20] MEDS: NICOTINE 14MG/24HR PATCH TRANSDERM SCH (09:06)
[2021-04-20] MEDS: ACETAMINOPHEN TAB 325 MG TAB PO PRN (09:06)
[2021-04-20] MEDS: ESCITALOPRAM 10 MG TAB PO SCH (09:06)
[2021-04-20] MEDS ORDERED: LORazepam 0.5 MG TAB PO PRN (11:00)
--- NOTE | 2021-04-20 11:35 | P.PN ---
Progress Note - Text Progress Note Date: 04/20/21 Interval History: Patient was seen wandering the hallways and was directable and agreeable to sp marc with sql report writer in the office. Patient continues to appear to have a depressed affect and was fairly constricted however states that she is doing "better". She states that her anxiety and mood have been improving. She states that she feels "weird" on the Lexapro and asked to have a decreased down to 5 mg. She claims that she still does not know where she is going to go upon discharge and spoke about potentially going to her mother's place however this may cause her more stress or also her father's house. She states that she was able to sleep better last night and did not feel "hung over" this morning from the Seroquel. She claims that she has not been going to groups and we'll attempt to participate in them today. At this time patient denies any suicidal or homical ideations, intent or plan. Patient denies any auditory, visual hallucinations and denies any paranoia or delusions. Patient denies any side effects from the medications and has been compliant with meds. Mental Status Exam: General Appearance: Patient appears to be stated age is alert, directable, and superficially cooperative. Multiple tattoos Behavior: Patient is calmly seated without any agitated behavior. Speech: Patient's speech is fluent and nonpressured. Mood/Affect: Mood is depressed and anxious, affect is congruent and constricted. Suicidality/Homicidality: Patient denies having any suicidal or homicidal ideation intent or plan. Perceptions: Patient denies any visual hallucinations and denies any auditory hallucinations Though content/process: There is no evidence of any delusional thought content and thought process is linear and goal-directed. Memory and concentration: AOX3, grossly intact for the purposes of this session Judgment and insight: Poor, Improving mildly Assessment Substance-induced psychotic disorder Depressive disorder unspecified methamphetamine use disorder severe, alcohol use disorder severe lack of stable housing Plan: -Patient continues to meet criteria for inpatient psychiatric admission for symptom stabilization and safety. Patient has signed adult voluntary form and medication consent and was placed in patient's chart. -Medications: Seroquel to 50 mg daily at bedtime for mood stabilization/psychosis/insomnia. decrease Lexapro 5 mg daily/anxiety. -When necessary Ativan and Haldol for agitation/aggression. -NRT - nicotine patch -SW on board for discharge planning. Encouraged the patient to participate in milieu. Patient will be thinking about inpt rehab versus sober house vs. staying with family/parents. Likely discharge in 1-2 days.
[2021-04-20] MEDS: QUEtiapine 50 MG TAB PO SCH (21:00)
[2021-04-21] MEDS: THIAMINE 100 MG TAB PO SCH (09:29)
[2021-04-21] MEDS: NICOTINE 14MG/24HR PATCH TRANSDERM SCH (09:29)
[2021-04-21] MEDS: ESCITALOPRAM 5 MG TAB PO SCH (09:29)
--- NOTE | 2021-04-21 13:58 | P.PN ---
Progress Note - Text Progress Note Date: 04/21/21 S&O: Patient was seen in the office for a follow-up examination. She is polite and friendly and cooperative. She was started on Lexapro 5 mg in the morning couple of days ago. She said she felt rather high today and decided not to take it today. She is also on Seroquel 50 mg at . she has several diagnoses in the chart. She said she was cutting herself since childhood until about 6 months ago she said she is quite emotional gets her feelings hurt easily and engages in self abusive behavior when she feels angry abandonment or disappointed. She has multiple piercings and also tattoos. She has a long history of abusing alcohol and methamphetamine and fentanyl. She was but has not been with her for a long time. She denies any symptoms of psychosis depression anxiety or other psychiatric symptoms when she is not abusing drugs or alcohol. She said she would like to go home and stay with her mother in [place]. Her progress and discharge plans were discussed this morning during treatment team meeting. It was agreed to discharge her tomorrow. This is an ambulatory female of [place] descent. She has good hygiene. She is polite and friendly and cooperative. She does not show any psychomotor agitation or retardation. Her speech is spontaneous and relevant and goal directed. Her mood is euthymic to cheerful and affect is appropriate to thought content. She denies hallucinations or delusional thinking suicide and homicide thoughts and she is well oriented with good memory concentration different of knowledge. Assessment: Borderline personality disorder appears to be most accurate diagnosis in addition to alcohol use disorder amphetamine use disorder and opioid use disorder. Plan: Continue current medications and therapies. Consider discharging her tomorrow unless something major happens today.
[2021-04-21] MEDS: QUEtiapine 50 MG TAB PO SCH (21:30)
[2021-04-22 07:11] VITALS: BP 101/60; PULSE 52; TEMP 97.5
[2021-04-22] MEDS: ESCITALOPRAM 5 MG TAB PO SCH (08:30)
[2021-04-22] MEDS: ACETAMINOPHEN TAB 325 MG TAB PO PRN (08:34)
[2021-04-22] MEDS: THIAMINE 100 MG TAB PO SCH (08:34)
[2021-04-22] MEDS: NICOTINE 14MG/24HR PATCH TRANSDERM SCH (08:35)
--- NOTE | 2021-04-22 11:29 | P.DS ---
Providers Date of admission: 04/16/21 20:13 Expected date of discharge: 04/22/21 Attending physician: Mega Caraballo MD Consults: 04/16/21 20:15 Consult Physician Routine Consulting Provider: Herbert Rubi Consult Reason/Comments: New Admission H & P Do you want consulting provider notified?: Yes Primary care physician: Stated None Plan - Discharge Summary Discharge Rx Participant: Yes New Discharge Prescriptions: New QUEtiapine [SEROquel] 50 mg PO HS 15 Days #15 tab No Action tiZANidine [Zanaflex] 4 mg PO BID PRN PRN Reason: Pain Naltrexone HCl [Revia] 50 mg PO HS Mirtazapine [Remeron] 30 mg PO HS Ibuprofen [Motrin] 800 mg PO TID PRN PRN Reason: Pain hydrOXYzine pamoate [Vistaril] 25 mg PO QID PRN PRN Reason: Anxiety Discharge Medication List tiZANidine [Zanaflex] 4 mg PO BID PRN 11/14/19 [History] Ibuprofen [Motrin] 800 mg PO TID PRN 04/16/21 [History] Mirtazapine [Remeron] 30 mg PO HS 04/16/21 [History] Naltrexone HCl [Revia] 50 mg PO HS 04/16/21 [History] hydrOXYzine pamoate [Vistaril] 25 mg PO QID PRN 04/16/21 [History] QUEtiapine [SEROquel] 50 mg PO HS 15 Days #15 tab 04/22/21 [Rx] Follow up Appointment(s)/Ref[facility] Patient Instructions/Handouts: Depression (DC), Polysubstance Abuse (ED) Activity/Diet/Wound Care/Special Instructions: Activity and diet as tolerated. Avoid the use of street drugs and alcohol. Take all medications as prescribed. When you are in need of refills on your medications please contact your medical provider and/or outpatient psychiatrist to have this done. Please go to scheduled outpatient appointment for aftercare treatment. If symptoms return or become worse, call the crisis line at and/or go to the nearest emergency room for evaluation.
--- NOTE | 2021-04-22 11:49 | P.DS ---
Providers Date of admission: 04/16/21 20:13 Expected date of discharge: 04/22/21 Attending physician: Mega Caraballo MD Consults: 04/16/21 20:15 Consult Physician Routine Consulting Provider: Herbert Rubi Consult Reason/Comments: New Admission H & P Do you want consulting provider notified?: Yes Primary care physician: Stated None Hospital Course: Patient was transferred from medical floor and so she did not have a Physical examination. She had her psychiatric H&P on 04/17/2021. After the psychiatric evaluation she was started on Seroquel 50 mg at bedtime for "mood and sleep". She initially felt rather tired in the morning and later on it subsided. She was also started on Lexapro 5 mg in the morning for reasons that is not clear since she was already on Seroquel. She was counseled about the duplicated orders and she agreed to get Lexapro discontinued. She gradually improved her mood became euthymic has been able to sleep well at night and has been getting along well with staff and peers. She also attended groups and individual therapy and learned better coping skills. She agreed to continue with outpatient treatment including medications and counseling. She expressed interest in continuing her Suboxone treatment from her doctor. She was counseled about the dangers of taking Suboxone while she is doing other drugs. She said she will try not to do so. Mental status on discharge: This is an ambulatory female of [place] descent. She has good hygiene. She is polite and friendly and cooperative. She does not show any psychomotor agitat ion or retardation. Her speech is spontaneous and relevant and goal directed. Her mood is euthymic to cheerful and affect is appropriate to thought content. She denies hallucinations or delusional thinking suicide and homicide thoughts and she is well oriented with good memory concentration different of knowledge. She was advised not to drive or operate machinery if she felt sleepy, not to dri nk alcohol or use drugs of abuse, seek drug rehab and continued counseling. She was also advised to inform her doctor if she gets . Assessment: Borderline personality disorder, alcohol use disorder amphetamine use disorder and opioid use disorder. Health Concerns: None Pertinent Studies: None Procedures: None Patient Condition at Discharge: Good Plan - Discharge Summary Discharge Rx Participant: Yes New Discharge Prescriptions: New QUEtiapine [SEROquel] 50 mg PO HS 15 Days #15 tab No Action tiZANidine [Zanaflex] 4 mg PO BID PRN PRN Reason: Pain Naltrexone HCl [Revia] 50 mg PO HS Mirtazapine [Remeron] 30 mg PO HS Ibuprofen [Motrin] 800 mg PO TID PRN PRN Reason: Pain hydrOXYzine pamoate [Vistaril] 25 mg PO QID PRN PRN Reason: Anxiety Discharge Medication List tiZANidine [Zanaflex] 4 mg PO BID PRN 11/14/19 [History] Ibuprofen [Motrin] 800 mg PO TID PRN 04/16/21 [History] Mirtazapine [Remeron] 30 mg PO HS 04/16/21 [History] Naltrexone HCl [Revia] 50 mg PO HS 04/16/21 [History] hydrOXYzine pamoate [Vistaril] 25 mg PO QID PRN 04/16/21 [History] QUEtiapine [SEROquel] 50 mg PO HS 15 Days #15 tab 04/22/21 [Rx] Follow up Appointment(s)/Referral(s): [facility] - [facility] Patient Instructions/Handouts: Depression (DC), Polysubstance Abuse (ED) Activity/Diet/Wound Care/Special Instructions: Activity and diet as tolerated. Avoid the use of street drugs and alcohol. Take all medications as prescribed. When you are in need of refills on your medications please contact your medical provider and/or outpatient psychiatrist to have this done. Please go to scheduled outpatient appointment for aftercare treatment. If symptoms return or become worse, call the crisis line at and/or go to the nearest emergency room for evaluation. Pending Studies Pending Results: None
== END 2021-04-22 14:32 | disposition home or self-care (01) | DRG 897 ==
LOC: EC 14:00 → 3MHU 20:13
PROVIDERS: ADMIT Psychiatry & Neurology Psychiatry; ATTEND Psychiatry & Neurology Psychiatry
DX: F19.959 Other psychoactive substance use, unspecified with psychoactive substance-induced psychotic disorder, unspecified (principal); F13.20 Sedative, hypnotic or anxiolytic dependence, uncomplicated; F15.20 Other stimulant dependence, uncomplicated; F10.24 Alcohol dependence with alcohol-induced mood disorder; F11.10 Opioid abuse, uncomplicated; F32.9 Major depressive disorder, single episode, unspecified; F41.9 Anxiety disorder, unspecified; F60.3 Borderline personality disorder; I10 Essential (primary) hypertension; Z56.0 Unemployment, unspecified; Z59.0 Homelessness; Z87.442 Personal history of urinary calculi; Z96.649 Presence of unspecified artificial hip joint
CPT/HCPCS: 80053; 80061; 80306; 82075; 83036; 84443; 85025; 99285

== ENCOUNTER 2021-11-06 10:43 | Emergency (ER) | payer MEDICARE, OTHER ==
[2021-11-06 11:01] VITALS: TEMP 98.6
[2021-11-06] MEDS ORDERED: HYDROcodone/APAP 5-325MG 1 EACH TAB PO STA (12:12)
--- NOTE | 2021-11-06 12:57 | XR ---
EXAMINATION TYPE: XR hand limited RT DATE OF EXAM: 11/06/2021 12:35 PM INDICATION: Patient age:Female; 36 years old; Reason for study: 2nd digit swelling, no trauma; PH[facility]. COMPARISON: None TECHNIQUE: 2 views of the right hand were obtained. FINDINGS: There is osseous body of the ulnar aspect of the second digit distal phalanx base. Soft tis luz maria swelling of the second digit without radiographic evidence for subcutaneous gas or osteomyelitis. IMPRESSION: 1. Suspected flexor digitorum profundus avulsion injury of the second digit distal phalanx base. Pb elate with injury. Consider outpatient MRI of the hand. 2. Right second digit soft tissue swelling likely secondary to #1.
--- NOTE | 2021-11-06 13:14 | ED ---
General Adult HPI - General Chief complaint: Extremity Problem,Nontraumatic Stated complaint: Swollen Finger Time Seen by Provider: 11/06/21 11:28 Source: patient, RN notes reviewed Mode of arrival: ambulatory Limitations: no limitations - History of Present Illness Initial comments: 36-year-old female presents to the emergency department for evaluation of pain and swelling to the index finger on the right hand. Patient states swelling began 2 weeks ago and has continued to worsen. States reddeness around the nail bed has increased over the past few days. Pain with palpation and movement; no loss of sensation. Denies injury, trauma, foreign body, fever, or chills. - Related Data Home Medications Medication Instructions Recorded Confirmed tiZANidine [Zanaflex] 4 mg PO BID PRN 11/14/19 04/16/21 Ibuprofen [Motrin] 800 mg PO TID PRN 04/16/21 04/16/21 Mirtazapine [Remeron] 30 mg PO HS 04/16/21 04/16/21 Naltrexone HCl [Revia] 50 mg PO HS 04/16/21 04/16/21 hydrOXYzine pamoate [Vistaril] 25 mg PO QID PRN 04/16/21 04/16/21 Previous Rx's Medication Instructions Recorded QUEtiapine [SEROquel] 50 mg PO HS 15 Days #15 tab 04/22/21 Cephalexin [Keflex] 500 mg PO Q6HR 10 Days #40 cap 11/06/21 Allergies Allergy/AdvReac Type Severity Reaction Status Date / Time Sulfa (Sulfonamide Allergy Rash/Hives/ Verified 11/06/21 11:01 Antibiotics) Swelling Review of Systems ROS Statement: Those systems with pertinent positive or pertinent negative responses have been documented in the HPI. ROS Other: All systems not noted in ROS Statement are negative. Past Medical History Past Medical History: Hypertension Additional Past Medical History / Comment(s): vascular necrosis-prosthetic hips, kidney stones History of Any Multi-Drug Resistant Organisms: None Reported Past Surgical History: Orthopedic Surgery Additional Past Surgical History / Comment(s): valerie HIP REPLACEMENT Past Anesthesia/Blood Transfusion Reactions: No Reported Reaction Past Psychological History: Anxiety, Depression Smoking Status: Current every day smoker Past Alcohol Use History: None Reported Past Drug Use History: None Reported - Past Family History Father History Unknown: Yes Additional Family Medical History / Comment(s): Pt is adopted General Exam Limitations: no limitations (Well-developed, well-nourished female in no acute distress. Initial temperature 98.6, pulse 87, respirations 20, blood pressure 170/99, pulse ox 97% on room air.) General appearance: alert, in no apparent distress Respiratory exam: Present: normal lung sounds bilaterally. Absent: respiratory distress, wheezes, rales, rhonchi, stridor Cardiovascular Exam: Present: regular rate, normal rhythm, normal heart sounds. Absent: systolic murmur, diastolic murmur, rubs, gallop, clicks GI/Abdominal exam: Present: soft, normal bowel sounds. Absent: distended, tenderness, guarding, rebound, rigid Right Forearm Wrist exam: Present: normal inspection, full ROM. Absent: tenderness, swelling Hand Wrist exam: Present: tenderness (Tenderness upon palpation of the distal phalynx), swelling (Circumferential swelling of the second digit on the right hand.), erythema (Erythematous distal phalanx from at the nailbed concerning for paronychia). Absent: abrasion, laceration Vascular: Present: normal capillary refill, radial pulse. Absent: vascular compromise, Pallo Neurological exam: Present: alert, oriented X3, CN II-XII intact Psychiatric exam: Present: normal affect, normal mood Skin exam: Present: warm, dry, intact, normal color. Absent: rash Course Vital Signs 11/06/21 11/06/21 10:59 14:54 Temperature 98.6 F Pulse Rate 87 88 Respiratory 20 18 Rate Blood Pressure 170/99 128/84 O2 Sat by Pulse 97 99 Oximetry Procedures - Incision & Drainage Consent Obtained: verbal consent Indication: paronychia, 2nd digit, right hand Site: hand (2nd digit right hand) Anesthetic Used: lidocaine 1% Amount (mLs): 3 I&D Cleaning Method: Betadine Sterile Field Used?: Yes Scalpel Used: #11 Needle Aspiration Performed?: No Irrigation Performed?: No I&D Drainage Obtained: Blood Culture Obtained?: No Patient Tolerated Procedure: well Medical Decision Making - Medical Decision Making 36-year-old female with no significant past medical history presents to the emergency department for evaluation. Upon exam, patient is noted to have significant circumferential edema to the second digit of the right hand. Furthermore, she is noted to have distal erythema on the dorsal surface of the affected digit with the appearance of paronychia. Patient denies trauma or injury. Does complain of significant discomfort with palpation and decreased range of motion due to swelling. She is afebrile with stable vital signs. X- ray was obtained showing suspected flexor digitorum profundus avulsion injury of the second digit distal phalanx base. Additionally, digital block was performed and 11 blade used to alleviate paronychia. Small amount of bloody discharge was obtained. Dressing was applied and patient placed in finger splint. Keflex was prescribed. She is instructed to follow up with orthopedics. Return parameters were discussed in detail. Patient verbalizes understanding and agrees with this plan. This patient's care was discussed with my attending Dr. López. - Radiology Data Radiology results: report reviewed, image reviewed X-ray of the right hand was obtained. Report was reviewed in its entirety. Impression per Dr. Grant is #1 suspected flexor digitorum profundus avulsion injury of the second digit distal phalanx base. #2. Right second digit soft tissue swelling likely secondary to #1. Disposition Clinical Impression: Avulsion fracture of distal phalanx of finger, Paronychia Disposition: HOME SELF-CARE Condition: Stable Instructions (If sedation given, give patient instructions): Finger Fracture (ED), Paronychia (ED) Additional Instructions: Soak finger in epsom salt soak 4 times daily. Apply bacitracin to nailbed. Keep extremity elevated when at rest. Take antibiotic as directed. Utilize finger splint. Follow up with orthopedist. Call the office on Monday morning to schedule follow up appointment. Return to the emergency department with any new, worsening, or concerning symptoms. Prescriptions: Cephalexin [Keflex] 500 mg PO Q6HR 10 Days #40 cap Is patient prescribed a controlled substance at d/c from ED?: No Referrals: Buck Salinas DO [Primary Care Provider] - 1-2 days [facility] [Provider Group] - 1-2 days Time of Disposition: 14:48
[2021-11-06] MEDS ORDERED: LIDOCAINE 1% INJ 10MG/ML (20 ML MDV) SQ ONE (13:42)
[2021-11-06] MEDS ORDERED: CEPHALEXIN 500 MG CAP PO STA (14:45)
[2021-11-06 14:55] VITALS: BP 128/84; PULSE 88; RESP 18
== END 2021-11-06 14:54 | disposition home or self-care (01) ==
LOC: EC 10:43
DX: S62.630A Displaced fracture of distal phalanx of right index finger, initial encounter for closed fracture (principal); L03.011 Cellulitis of right finger; F17.200 Nicotine dependence, unspecified, uncomplicated; I10 Essential (primary) hypertension; Z88.2 Allergy status to sulfonamides; X58.XXXA Exposure to other specified factors, initial encounter
CPT/HCPCS: 73120; 99283; 10060; J2001